=== PATIENT | female | born 1965 | race Caucasian/White ===

== ENCOUNTER → 2017-09-17 | Day surgery (SDC) | payer BC ==
[~2017-09-17] MED LIST: ADVIL PO; AMITIZA24 MCG PO; APIDRA100 UNIT/2 SQ; ARTHROTEC EC 71 EACH; ARTHROTEC EC 71 EACH PO; BELBUCA PO; BENTYL10 MG PO; BUPROPION HCL100 MG PO; CALCIUM PO; CARAFATE1 GM/10 ML PO; CEFDINIR250 MG/5 M PO; CITRACAL + D M1 EACH PO; COD LIVER OIL1 EAC1 PO; CYCLOBENZAPRINE5 MG PO; DEXILANT60 MG PO; DEXTROSE 5% 250ML 250 ML IV ONE; DEXTROSE 5%/LACTATED RINGERS 1,000 ML IV ONE; DILAUDID4 MG PO; EVAMIST8.1 ML TD; EVAMIST8.1 ML TOP; FENTANYL CITRATE/PF 100MCG/2 ML INJ ONE; FLAGYL250 MG PO; FLEXERIL10 MG PO; FLUCONAZOLE100 MG PO; HUMALOG100 UNIT/1 SC; HUMALOG100 UNIT/4 SQ; HYOSCYAMINE0.375 M2 PO; HYOSCYAMINE0.375 MG PO; IMURAN50 MG PO; KEFLEX500 MG PO; KETOROLAC TROME10 MG PO; LANTUS 3ML100 UNITS/ SC; LANTUS100 UNITS/ SQ; LEVAQUIN500 MG PO; LEVOTHYROXINE150 MCG PO; LEXAPRO10 MG PO; LIBRAX CAPSULE1 EACH PO; LIDOCAINE HCL 2% LOCAL INJ 5 ML SDV VIAL INJ ONE; LINZESS PO; MACROBID 100 M100 MG PO; MAGNESIUM PO; MAGNESIUM400 MG PO; MAXZIDE 37.5 M1 EACH; MICARDIS40 MG PO; MIDAZOLAM HCL 2 MG/2 ML VIAL ONE; MULTIVITAMIN PO; NORCO 10-325 T1 EACH; NORCO 5-325 TA1 EACH PO; NORCO 7.5-3251 EACH PO; PANTOPRAZOLE SO40 MG PO; POTASSIUM20 MEQ/100 PO; PRANDIN1 MG PO; PREDNISONE1 MG PO; PROMETHAZINE HC25 M1 PO; PROPOFOL IV EMULSION 10 MG/ML 50 ML VIAL ONE; PROTONIX IV40 MG PO; REGLAN10 MG PO; SULFASALAZINE500 MG PO; TRAMADOL 100 MG; TRIAMTERENE-HCTZ1 EA PO; TYLENOL; TYLENOL EXTRA500 MG PO; TYLENOL PO; ULTRAM50 MG PO; VITAMIN D35000 UNI1 PO; VITAMIN D35000 UNIT PO; Z.0.GLIPIZIDE10 MG PO; Z.0.LANTUS100 UNIT/1 SQ; Z.0.METOCLOPRAMIDE10 PO; Z.0.MICARDIS80 MG PO; Z.0.PANTOPRAZOLE SO4 PO; Z.1.LEVOTHYROXINE100 PO; ZOFRAN ODT4 MG PO; ZYRTEC10 MG PO; [UNRECOGNIZED DRUG - OTHER] PO; [UNRECOGNIZED DRUG - OTHER] TD; norco; phenergan PO
--- OUTSIDE RECORDS SUMMARY | 2017-09-17 12:43 | XMS REPORT ---
Author Author [facility] Address Unknown Phone Unavailable Care Team Providers Care Telecommunications Engineer Name Role Phone VIRYROBELKARIME Unavailable Unavailable Problems This patient has no known problems. Allergies, Adverse Reactions, Alerts This patient has no known allergies or adverse reactions. Medications This patient has no known medications. Results Test Description Test Time Test Comments Text Results Atomic Results Result Comments POCT-GLUCOSE METER 2016-08-06 12:30:00 POC-GLUCOSE METER (BEAKER) (test bwoy=[id number]) 168 mg/dL 70-110 TESTED AT [facility] [address] [place] [id number]
--- OUTSIDE RECORDS SUMMARY | 2017-09-17 12:43 | XMS REPORT | Clinical Summary ---
Author Author [facility] Address Unknown Phone Unavailable Care Team Providers Care Automotive [employer] Counter Person Name Role Phone PCP Unavailable Allergies Active Allergy Reactions Severity Noted Date Comments Ciprofloxacin Hives 11/27/2013 Not sure if this is a true allergy. States they think it was because her liver was "not working properly", pt states that she tolerate levoquin fine without any reactions Codeine Hives 11/27/2013 Hydrocodone-Acetaminophen Itching 08/05/2016 Current Medications Prescription Sig. Disp. Refills Start End Date Status Date levothyroxine (SYNTHROID, Take 150 mcg by mouth Active LEVOTHROID) 150 MCG daily. tablet telmisartan (MICARDIS) 40 Take 80 mg by mouth daily Active MG tablet . insulin glargine (LANTUS) Inject 80 Units Active 100 unit/mL injection subcutaneously every morning. Use as directed insulin glargine (LANTUS) Inject 40 Units Active 100 unit/mL injection subcutaneously nightly. Use as directed estradiol (EVAMIST) 1.53 Place 1 spray onto the Active mg/spray (1.7%) skin daily. transdermal spray pantoprazole (PROTONIX) Take 40 mg by mouth 2 Active 40 MG tablet (two) times daily. metoclopramide HCl Take 10 mg by mouth 3 Active (REGLAN) 10 MG tablet (three) times daily. hyoscyamine sulfate Take 0.375 mg by mouth 2 Active (LEVSINEX) 0.375 mg 12 hr (two) times daily as capsule needed for Cramping. HYDROcodone-acetaminophen Take 1 tablet by mouth Active (NORCO 5-325) 5-325 mg every 4 (four) hours as per tablet needed for Pain. cyclobenzaprine Take 10 mg by mouth 3 Active (FLEXERIL) 10 MG tablet (three) times daily as needed for Muscle spasms. traMADol (ULTRAM) 50 mg Take 50 mg by mouth every Active tablet 6 (six) hours as needed for Pain. clidinium-chlordiazepoxid Take 1 capsule by mouth 4 Active e (LIBRAX, WITH (four) times daily as CLIDINIUM,) 5-2.5 mg per needed. capsule buprenorphine HCl Place 75 mcg inside cheek Active (BELBUCA) 75 mcg Film 2 (two) times daily. insulin lispro (HUMALOG) Inject subcutaneously 3 Active 100 unit/mL InPn (three) times daily with meals. diclofenac-misoprostol Take 1 tablet by mouth 2 Active (ARTHROTEC 75) 75-200 (two) times daily. mg-mcg per tablet promethazine (PHENERGAN) Take 25 mg by mouth every Active 25 MG tablet 6 (six) hours as needed for Nausea. ondansetron (ZOFRAN) 8 MG Take by mouth every 8 Active tablet (eight) hours as needed for Nausea. Active Problems No known active problems Social History Tobacco Use Types Packs/Day Years Used Date Never Smoker Smokeless Tobacco: Never Used Alcohol Use Drinks/Week oz/Week Comments No Sex Assigned at Date Recorded Not on file Last Filed Vital Signs Not on file Plan of Treatment Health Maintenance Due Date Last Done Comments INFLUENZA VACCINE 03/14/2017 Results * REPORT OF PROCEDURE - ENDOSCOPY URL (12/03/2016 9:42 AM) after 09/16/2016
--- OUTSIDE RECORDS SUMMARY | 2017-09-17 12:43 | XMS REPORT | Clinical Summary ---
Author Author [facility] Address Unknown Phone Unavailable Care Team Providers Care Patient Resource Coordinator Name Role Phone Sean Newman MD PCP Allergies Active Allergy Reactions Severity Noted Date Comments Ciprofloxacin Hives 12/17/2015 Codeine Hives 12/17/2015 Current Medications Prescription Sig. Disp. Refills Start End Date Status Date cyclobenzaprine Take 10 mg by mouth 2 11/29/19 Active (FLEXERIL) 10 MG tablet daily. 16 LANTUS 100 unit/mL Inject 40 Units under the 5 11/22/19 Active injection skin nightly. Takes 80U 16 in am HUMALOG KWIKPEN 100 Inject 20 Units under the 5 12/13/19 Active unit/mL insulin pen skin 3 (three) times a 16 day before meals. 20-40U levothyroxine (SYNTHROID, Take 150 mcg by mouth 0 09/11/19 Active LEVOTHROID) 150 MCG daily. 16 tablet LINZESS 145 mcg capsule Take 145 mcg by mouth 2 12/02/19 Active daily. 16 traMADol (ULTRAM) 50 mg Take 50 mg by mouth every 0 10/10/19 Active tablet 6 (six) hours as needed. 16 Take 1 to 2 tablets every 6 hours as needed pantoprazole (PROTONIX) Take 40 mg by mouth 2 0 11/22/19 Active 40 MG EC tablet (two) times a day. 16 telmisartan (MICARDIS) 40 Take 80 mg by mouth 0 11/22/19 Active MG tablet daily. 16 chlordiazepoxide-clidiniu Take 1 capsule by mouth 2 12/02/19 Active m (LIBRAX) 5-2.5 mg per nightly. 16 capsule estradiol (EVAMIST) 1.53 Place 2 sprays on the Active mg/spray (1.7%) skin daily. transdermal spray hyoscyamine (LEVBID) Take 0.375 mg by mouth Active 0.375 mg 12 hr tablet every 12 (twelve) hours as needed for cramping. cholecalciferol, vitamin Take 1 capsule by mouth Active D3, (VITAMIN D3) 5,000 daily. unit tablet calcium carbonate-vitamin Take 1 tablet by mouth Active D3 (CALCIUM 500 + D, D3,) daily. 500 mg(1,250mg) -125 unit per tablet magnesium oxide (MAG-OX) Take 400 mg by mouth 3 Active 400 mg tablet (three) times a day. ursodiol (ACTIGALL) 500 Take 250 mg by mouth 2 Active MG tablet (two) times a day. metroNIDAZOLE (FLAGYL) 0 04/14/20 Active 500 MG tablet 16 levofloxacin (LEVAQUIN) 0 04/15/20 Active 500 MG tablet 16 Active Problems Problem Noted Date Biliary stricture 04/22/2016 Last Assessment & Plan: She has undergone multiple ERCP's, one complicated by perforation. She refers to recurrent biliary stricture, but none noted on most recent MRCP. No jaundice. I do not suspect her pain is related to any biliary process. Further, she has undergone sphincterotomy and sphincteroplasty, with complication. As such, I feel further biliary endotherapy would not be warranted unless jaundice secondary to biliary obstruction were to develop PSC (primary sclerosing cholangitis) 04/14/2016 Nonalcoholic steatohepatitis 04/14/2016 Fatty liver 12/18/2015 Type II or unspecified type diabetes mellitus without mention of 12/18/2015 complication, uncontrolled Hypothyroidism, adult 12/18/2015 Essential hypertension, benign 12/18/2015 Obesity 12/18/2015 Celiac disease 12/18/2015 Abdominal pain 12/17/2015 Last Assessment & Plan: Etiology of the pain is not clear. Imaging without acute findings. She has long standnig pain, that I suspect is functional in etiology. She has undergone stricturoplasty for unclear reasons. I suspect she main need pain management for her chronic pain issues. Encounters Date Type Specialty Care Team Description 11/27/2016 Hospital Radiology Baljinder Pan MD Right upper quadrant Encounter pain; Constipation, unspecified constipation type 11/25/2016 Procedure Pass Radiology 11/25/2016 Transcribe Access Baljinder Pan MD Right upper quadrant pain Orders (Primary Dx); Constipation, unspecified constipation type after 09/16/2016 Family History Medical History Relation Name Comments Diabetes Brother Hypertension Brother No Known Problems Father Diabetes Mother Hypertension Mother Relation Name Status Comments Brother Father Mother Social History Tobacco Use Types Packs/Day Years Used Date Never Smoker Alcohol Use Drinks/Week oz/Week Comments No Sex Assigned at Date Recorded Not on file Last Filed Vital Signs Not on file Plan of Treatment Health Maintenance Due Date Last Done Comments FOOT EXAM 11/21/1975 OPHTHALMOLOGY EXAM 11/21/1975 URINE MICROALBUMIN 11/21/1975 PAP SMEAR 1986 COLONOSCOPY 11/21/2015 MAMMOGRAM 11/21/2015 INFLUENZA VACCINE 01/12/2018 Results * MRI CHOLANGIOGRAM W WO CONTRAST (11/27/2016 1:43 PM) Specimen Performing Laboratory [facility] [address] [place] [address] Narrative EXAMINATION:MRI CHOLANGIOGRAM W WO CONTRAST CLINICAL HISTORY:R10.11 Right upper quadrant pain, K59.00 Constipation unspecified, RUQ PAIN TECHNIQUE: Multisequence multiplanar MR imaging of the abdomen was performed before and then following the intravenous administration of gadolinium contrast. In addition, 3-D hydropic MRCP was performed with multiplanar MIP reconstructions. COMPARISON:04/02/2016 FINDINGS: LIVER:Advanced hepatic steatosis is present without mass. No suspicious enhancement of the liver. BILIARY:Stable changes are present status post cholecystectomy. Pneumobilia is present with gas well seen in the common hepatic, central left hepatic and proximal common bile ducts. Common bile duct measures 7 mm similar to 10/21/[address] No abnormal enhancement of the biliary tree is identified. SPLEEN:Normal in size without mass. PANCREAS:No mass or ductal dilatation. ADRENALS:Normal KIDNEYS:Normal.Symmetric renal enhancement BOWEL:Normal. VASCULAR:Normal enhancement of the aorta, branch vessels, IVC and portal veins. LYMPH NODES:No pathological adenopathy. OTHER:No ascites. Regional osseous structures are unremarkable. The heart is not enlarged. Lung bases are clear. IMPRESSION: Advanced hepatic steatosis. Status post cholecystectomy with stable pneumobilia probably related to prior sphincterotomy. No developing biliary dilatation or susicious biliary enhancement. Thank you for allowing us to participate in the care of your patient. [facility]-[id number] Procedure Note Hm Interface, Radiology Results Incoming - 11/27/2016 2:31 PM CDT EXAMINATION: MRI CHOLANGIOGRAM W WO CONTRAST CLINICAL HISTORY: R10.11 Right upper quadrant pain, K59.00 Constipation unspecified, RUQ PAIN TECHNIQUE: Multisequence multiplanar MR imaging of the abdomen was performed before and then following the intravenous administration of gadolinium contrast. In addition, 3-D hydropic MRCP was performed with multiplanar MIP reconstructions. COMPARISON: 04/02/2016 FINDINGS: LIVER: Advanced hepatic steatosis is present without mass. No suspicious enhancement of the liver. BILIARY: Stable changes are present status post cholecystectomy. Pneumobilia is present with gas well seen in the common hepatic, central left hepatic and proximal common bile ducts. Common bile duct measures 7 mm similar to 10/21/[address] No abnormal enhancement of the biliary tree is identified. SPLEEN: Normal in size without mass. PANCREAS: No mass or ductal dilatation. ADRENALS: Normal KIDNEYS: Normal. Symmetric renal enhancement BOWEL: Normal. VASCULAR: Normal enhancement of the aorta, branch vessels, IVC and portal veins. LYMPH NODES: No pathological adenopathy. OTHER: No ascites. Regional osseous structures are unremarkable. The heart is not enlarged. Lung bases are clear. IMPRESSION: Advanced hepatic steatosis. Status post cholecystectomy with stable pneumobilia probably related to prior sphincterotomy. No developing biliary dilatation or susicious biliary enhancement. Thank you for allowing us to participate in the care of your patient. [facility]-[id number] after 09/16/2016 Insurance Payer Benefit Subscriber ID Type Phone Address Plan / Group BCBS BCBS xxxxxxxxxxxx PPO CHOICE PPO/[facility] PPO [address] [place] [phone]
--- NOTE | 2017-09-17 18:24 | Operative Report ---
DATE OF PROCEDURE: September 17, 2017 REFERRING PHYSICIAN: Dr. Ernesto Muñoz PROCEDURE PERFORMED: Esophagogastroduodenoscopy with biopsy. INDICATIONS FOR EGD: Right upper quadrant pain, thickened antrum on computerized tomography scan. MEDICATION: Patient was done under MAC. Please see anesthesiologist's note. PROCEDURE: With the patient in the left lateral decubitus position, the flexible fiberoptic Olympus gastroscope was introduced into the esophagus under direct visualization without any difficulty. There was some patchy erythema noted in the distal esophagus. The scope was then advanced with ease into the stomach. Mucosa overlying the antrum and the body revealed some diffuse erythema and mild to moderate edema, and biopsies were obtained and sent to stain for H. pylori. The pylorus was of normal contour and shape. It was intubated with ease. The scope was advanced all the way to the 2nd portion of the duodenum. The scope was then withdrawn slowly. Mucosa overlying the proximal 2nd portion, as well as that of the duodenal bulb appeared to be within normal limits. The scope was then withdrawn back into the stomach and retroflexed. The mucosa overlying the fundus and the cardia appeared to be within normal limits. The scope was then straightened out. The stomach was decompressed. The scope was subsequently withdrawn. Patient tolerated the procedure well. IMPRESSION 1. Distal esophagitis. 2. Gastritis, biopsied. Biopsies sent to stain for Helicobacter pylori. PLAN: Follow up histology. Continue Protonix 40 mg 1 p.o. a.c. b.i.d. Add Carafate 1 g p.o. a.c. t.i.d. and at bedtime. Job#: [id number] RI cc:ERNESTO MUÑOZ DO
== END | disposition home or self-care (01) ==
LOC: OR 12:41
PROVIDERS: ATTEND Internal Medicine Gastroenterology
DX: K29.50 Unspecified chronic gastritis without bleeding (principal); K20.9 Esophagitis, unspecified; K31.89 Other diseases of stomach and duodenum; F32.9 Major depressive disorder, single episode, unspecified; F41.9 Anxiety disorder, unspecified; E11.9 Type 2 diabetes mellitus without complications; K75.81 Nonalcoholic steatohepatitis (NASH); I10 Essential (primary) hypertension; Z88.5 Allergy status to narcotic agent; Z88.1 Allergy status to other antibiotic agents; Z01.810 Encounter for preprocedural cardiovascular examination; Z79.4 Long term (current) use of insulin; Z68.41 Body mass index [BMI] 40.0-44.9, adult; Z80.0 Family history of malignant neoplasm of digestive organs
CPT/HCPCS: 36415; 43239; 82948; 93005; J2001; J2250; J7120

== ENCOUNTER → 2017-12-02 | Outpatient (CLI) | payer BC ==
[~2017-12-02] MED LIST changes: -DEXTROSE 5% 250ML 250 ML IV ONE; -DEXTROSE 5%/LACTATED RINGERS 1,000 ML IV ONE; -FENTANYL CITRATE/PF 100MCG/2 ML INJ ONE; -LIDOCAINE HCL 2% LOCAL INJ 5 ML SDV VIAL INJ ONE; +LIDOCAINE VISC 2% SOLN 15 ML UDC ONE; -MIDAZOLAM HCL 2 MG/2 ML VIAL ONE; -PROPOFOL IV EMULSION 10 MG/ML 50 ML VIAL ONE
== END ==
LOC: WCC 08:07
PROVIDERS: ATTEND Family Medicine Adult Medicine
DX: E11.65 Type 2 diabetes mellitus with hyperglycemia (principal); L84 Corns and callosities; I10 Essential (primary) hypertension; E03.8 Other specified hypothyroidism; E66.01 Morbid (severe) obesity due to excess calories; K76.9 Liver disease, unspecified
CPT/HCPCS: 36415; 82948

== ENCOUNTER 2018-03-20 11:29 | Emergency (ER) | payer BC ==
[~2018-03-20] VITALS: Ht 162.6 cm; Wt 113.4 kg
[~2018-03-20 11:29] MED LIST changes: -LIDOCAINE VISC 2% SOLN 15 ML UDC ONE
[2018-03-20] MEDS ORDERED: SODIUM CHLORIDE 0.9% 1000ML 1,000 ML IV SCH (13:00)
[2018-03-20] MEDS ORDERED: PROMETHAZINE 12.5MG/ NACL 0.9% 12.5 MG/50 ML BAG IV ONE (13:00)
--- NOTE | 2018-03-20 15:16 | Diagnostic Imaging Report ---
EXAM: CT Abdomen and Pelvis WITH contrast COMPARISON: CT Abdomen/Pelvis with contrast 10/03/2015. TECHNIQUE: Abdomen and pelvis were scanned utilizing a multidetector helical scanner from the lung base to the pubic symphysis after administration of IV contrast. Coronal and sagittal reformations were obtained. Routine protocol was performed. Scan was performed when during portal venous phase. IV CONTRAST: 100 cc of Isovue 370 ORAL CONTRAST: Gastrografin and water. COMPLICATIONS: None RADIATION DOSE: Total DLP: 877 mGy*cm Estimated effective dose: (DLP x 0.015 x size factor) mSv CTDIvol has been reviewed. It is below the limits set by the Radiation Protocol Committee (RPC). FINDINGS: LINES and TUBES: None. LOWER THORAX: Unremarkable HEPATOBILIARY: No evidence of focal lesion. No biliary ductal dilation. Stable pneumobilia. GALLBLADDER: Surgically absent. SPLEEN: No splenomegaly. PANCREAS: No focal masses or ductal dilatation. ADRENALS: No adrenal nodules KIDNEYS/URETERS: Kidneys enhance symmetrically. No evidence of hydronephrosis, solid mass, or stone. GI TRACT: No evidence of wall thickening or distension. The appendix is not well seen, however there are no secondary signs of appendicitis. PELVIC ORGANS/BLADDER: Status post hysterectomy. LYMPH NODES: No lymphadenopathy. VESSELS: There is mild atherosclerotic disease in the aorta and major arterial branches. PERITONEUM / RETROPERITONEUM: No free air or fluid. BONES AND SOFT TISSUES: Unremarkable. CONCLUSION: No acute abnormality in the abdomen or pelvis. Signed by: Dr. Jason Garza MD on 03/20/2018 3:12 PM
[2018-03-28] MEDS ORDERED: Insulin Detemir SQ (08:54)
[2018-03-28] MEDS ORDERED: LIBRAX CAPSULE1 EACH PO (08:54)
--- OUTSIDE RECORDS SUMMARY | 2018-03-29 11:25 | XMS REPORT | Clinical Summary ---
Author Author [facility] Address Unknown Phone Unavailable Care Team Providers Care Leather Stretcher Name Role Phone Jovan Newman MD PCP Allergies Active Allergy Reactions [...] pain management for her chronic pain issues. Family History Medical History Relation Name Comments [...] Health Maintenance Due Date Last Done Comments DIABETIC FOOT EXAM 11/21/1975 DIABETIC RETINAL EYE EXAM 11/21/1975 URINE MICROALBUMIN 11/21/1975 CERVICAL CANCER SCREENING 1986 BREAST CANCER SCREENING 11/21/2015 COLON CANCER SCREENING 11/21/2015 SHINGRIX VACCINE (#1) 11/21/2015 INFLUENZA VACCINE 01/12/2018 Results Not on fileafter 03/19/2017 Insurance Payer Benefit Subscriber ID Type Phone Address Plan / Group BCBS BCBS xxxxxxxxxxxx PPO CHOICE PPO/[employer] [place] [address]
--- OUTSIDE RECORDS SUMMARY | 2018-03-29 11:25 | XMS REPORT | Clinical Summary ---
Author Author [facility] Address Unknown Phone Unavailable Care Team Providers Care Spoilage Worker Name Role Phone PCP Unavailable Allergies Active [...] Due Date Last Done Comments INFLUENZA VACCINE 03/14/2018 Results Not on fileafter 03/19/2017
--- OUTSIDE RECORDS SUMMARY | 2018-03-29 11:25 | XMS REPORT | Continuity of Care Document ---
Author Author [facility] Interface Address Unknown Phone Unavailable Problems Problem Status Onset Date Classification Date Reported Comments Source Medications Medication Details Route Status Patient Instructions Ordering Provider Order Date Source Allergies, Adverse Reactions, Alerts Substance Category Reaction Severity Reaction type Status Date Reported Comments Source Immunizations Immunization Date Given Site Status Last Updated Comments Source Results Order Name Results Value Reference Range Date Interpretation Comments Source Vital Signs Vital Sign Value Date Comments Source Encounters Location Location Details Encounter Type Encounter Number Reason For Visit Attending Provider ADM Date DC Date Status Source Outpatient [id number] JUNIOR SAHU 02/13/2016 Active [facility] Procedures Procedure Code Date Perfomer Comments Source
== END 2018-03-20 15:34 | disposition home or self-care (01) ==
LOC: FSED 11:29
DX: R10.11 Right upper quadrant pain (principal); R10.12 Left upper quadrant pain; K59.00 Constipation, unspecified; I10 Essential (primary) hypertension; E11.9 Type 2 diabetes mellitus without complications; K50.90 Crohn's disease, unspecified, without complications; E03.9 Hypothyroidism, unspecified
CPT/HCPCS: 74177; 80048; 80076; 81003; 85025; 99284; J2550; J7030

== ENCOUNTER 2018-03-24 15:01 | Inpatient (IN) | payer BC ==
[2018-03-24 15:58] VITALS: BP 131/56
[2018-03-24 16:56] VITALS: BP 131/56
[2018-03-24] MEDS: HYDROMORPHONE 2MG/ML 2 MG/ML ML IV PRN ×2 (17:20→22:38)
[2018-03-24 17:42] LABS: BASOPHILS % 0.1 % (0.0-1.0); EOSINOPHILS % 0.3 % (0.0-6.0); HEMATOCRIT 32.4 % (34.2-44.1); HEMOGLOBIN 11.4 g/dL (12.0-16.0); LYMPHOCYTES # (AUTO) 2.1 (1.0-3.2); LYMPHOCYTES % 26.8 % (18.0-39.1); MEAN CORPUSCULAR HEMOGLOBIN 32.6 pg (28-32); MEAN CORPUSCULAR HGB CONC 35.2 g/dL (31-35); MEAN CORPUSCULAR VOLUME 92.6 fL (81-99); MONOCYTES # (AUTO) 0.4 (0.2-0.8); MONOCYTES % 4.9 % (4.4-11.3); NEUTROPHILS # (AUTO) 5.3 (2.1-6.9); NEUTROPHILS % 67.6 % (38.7-80.0); PLATELET COUNT 265 x10e3/uL (140-360); RED CELL DISTRIBUTION WIDTH 12.5 % (11.7-14.4)
[2018-03-24] MEDS: SODIUM CHLORIDE 0.9% 1000ML 1,000 ML IV SCH (17:44)
[2018-03-24] MEDS: METRONIDAZOLE 500MG/NS 100ML 100 ML IV SCH (17:44)
[2018-03-24 18:20] LABS: ALANINE AMINOTRANSFERASE 26 IU/L (0-55); ALBUMIN 3.4 g/dL (3.5-5.0); ALKALINE PHOSPHATASE 89 IU/L (40-150); ANION GAP 13.4 mmol/L (8-16); BLOOD UREA NITROGEN 9 mg/dL (7-26); BUN/CREATININE RATIO 11 (6-25); CALCIUM 8.7 mg/dL (8.4-10.2); CARBON DIOXIDE 23 mmol/L (22-29); CHLORIDE 99 mmol/L (98-107); CREATININE, SERUM 0.82 mg/dL (0.57-1.11); EST GLOMERULAR FILTRATION RATE > 60 ML/MIN (60-); GLUCOSE 66 mg/dL (74-118); LIPASE 8 U/L (8-78); POTASSIUM 3.4 mmol/L (3.5-5.1); SODIUM 132 mmol/L (136-145)
[2018-03-24] MEDS ORDERED: IMURAN50 MG PO (19:28)
[2018-03-24] MEDS: LEVOFLOXACIN 750MG/D5W 150ML 150 ML IV SCH (19:30)
[2018-03-24] MEDS: ONDANSETRON HCL INJ 2 MG/ML VIAL IV PRN (19:36)
--- NOTE | 2018-03-24 19:40 | Diagnostic Imaging Report ---
Exam: Abdominal film Clinical History: Intractable nausea and vomiting Comparison: None. DISCUSSION: Frontal view of the abdomen shows a nonobstructive bowel gas pattern with mild amount of retained stool. No dilated, air-filled loops of bowel. No abnormal calcifications. No acute bone abnormality. IMPRESSION: 1. Nonobstructive bowel gas pattern. Signed by: Dr. Tian Peña M.D. on 03/24/2018 7:36 PM
[2018-03-24 20:00] VITALS: BP 131/61
[2018-03-25 00:10] VITALS: BP 148/72
[2018-03-25] MEDS: METRONIDAZOLE 500MG/NS 100ML 100 ML IV SCH ×3 (01:00→17:41)
[2018-03-25] MEDS ORDERED: PANTOPRAZOLE 40 MG 10ML VIAL IV STA (01:06)
[2018-03-25] MEDS: PANTOPRAZOLE INJ 40 MG in SODIUM CHLORIDE 0.9% 50ML 50 ML IV SCH ×5 (02:00→22:04)
[2018-03-25] MEDS: PROMETHAZINE 25MG/ NS 50ML (IV) IV PRN ×3 (02:30→23:55)
[2018-03-25 04:20] VITALS: BP 134/65
[2018-03-25 05:57] LABS: BILIRUBIN,URINE NEGATIVE (NEGATIVE); CLARITY,URINE CLEAR (CLEAR); COLOR,URINE YELLOW (YELLOW); EPITHELIAL CELLS,URINE FEW /LPF; KETONES,URINE NEGATIVE (NEGATIVE); LEUKOCYTE ESTERASE ,URINE NEGATIVE (NEGATIVE); NITRITE,URINE NEGATIVE (NEGATIVE); PROTEIN,URINE DIPSTICK NEGATIVE (NEGATIVE); URINE UROBILINOGEN 0.2 mg/dL (0.2 - 1)
[2018-03-25 08:00] VITALS: BP 108/56
[2018-03-25] MEDS: HYDROMORPHONE 2MG/ML 2 MG/ML ML IV PRN ×2 (11:45→23:55)
[2018-03-25 12:00] VITALS: BP 135/63
[2018-03-25] MEDS ORDERED: INDOMETHACIN 50 MG SUPP.RECT RC ONE (14:03)
[2018-03-25] MEDS ORDERED: IOPAMIDOL 610MG/1ML 300 MG/ML VIAL IV ONE (14:03)
[2018-03-25] MEDS ORDERED: GLUCAGON FOR INJ 1 MG VIAL ONE ×2 (14:36)
[2018-03-25] MEDS ORDERED: HYOSCYAMINE SULFATE 0.5 MG/ML INJ ONE (14:37)
[2018-03-25] MEDS ORDERED: MORPHINE SULFATE 2 MG/ML SYR ONE ×2 (15:32→15:44)
[2018-03-25 16:00] VITALS: BP 163/73
--- NOTE | 2018-03-25 17:36 | History and Physical ---
PRIMARY CARE PHYSICIAN: Dr. Mendez Doan. CHIEF COMPLAINT: Right-sided abdominal pain and fever. HISTORY OF PRESENT ILLNESS: This is a 52-year-old woman with a history of significant biliary disease, who had a scheduled ERCP with Dr. Mahmood for today electively. Patient came to the clinic yesterday with severe pain in the right abdomen with fever. I did a direct admission to the hospital and started her on IV antibiotics and fluids. Dr. Mahmood notified and plans for ERCP today. Patient underwent sphincteroplasty and is recovering. Pain is somewhat controlled. Fevers have improved. She denies any nausea, vomiting. Denies any leg pain, back pain. PAST MEDICAL HISTORY: Celiac disease, stage 4 fatty liver, diabetes mellitus type 2, hypertension, interstitial cystitis and cocktail with steroids, chronic James-Smart virus, Crohn's disease, severe pancreatitis due to sphincterotomy, peripheral edema, obesity, right parotid gland infections, common bile duct stricture, recurring cholangitis, fibromyalgia. She is status post common bile duct exploration with sphincteroplasty of the sphincter body. Gastroparesis, chronic constipation, hypertensive heart disease, diabetic peripheral neuropathy, nonalcoholic steatohepatitis, hypothyroidism, chronic fatigue syndrome. PAST SURGICAL HISTORY: Common bile duct exploration with sphincteroplasty of the sphincter body in March 2014. Tonsillectomy, adenoidectomy, sinus surgery, carpal tunnel release surgery, multiple ERCPs with common bile duct stent placement status post removal, liver biopsy, temporal artery biopsy, thyroidectomy, cholecystectomy. ALLERGIES: PER THE ELECTRONIC MEDICAL RECORDS. FAMILY HISTORY/SOCIAL HISTORY: Patient is . She has children. She lives with her . No alcohol, illicits or cigarettes. MEDICATIONS: Per the electronic medical records. Medications reviewed. REVIEW OF SYSTEMS: Denies any dizziness, chest pain. Denies any headache, back pain, vision changes. Denies any shortness of breath. VITAL SIGNS: Have been reviewed. Temperature as high as 100.4. PHYSICAL EXAMINATION GENERAL APPEARANCE: A tired-appearing woman resting in bed. HEENT: Anicteric. Pupils responsive to light. No oral lesions. CARDIOVASCULAR: Normal S1/S2. LUNGS: Moderate breath sounds. ABDOMEN: Soft, nondistended. She has tenderness in the right upper quadrant and has voluntary guarding. EXTREMITIES: No edema or calf tenderness. NEUROLOGICALLY: Alert and oriented x3. She moves all extremities. SKIN: Dry. PSYCHIATRIC: Flat affect. LABS: Reviewed. ASSESSMENT: This is a 52-year-old woman. 1. Recurrent cholangitis. 2. Biliary disease. 3. Fever. 4. Hypokalemia. 5. She is status post sphincteroplasty. 6. Diabetes mellitus. 7. Crohn's disease. 8. Celiac disease. 9. Chronic James-Smart virus infection. 10. Gastroesophageal reflux disease. 11. Fibromyalgia. 12. Hypothyroidism. PLAN 1. She is status post ERCP with sphincteroplasty. 2. Continue broad-spectrum antibiotics with cefepime and vancomycin and follow up cultures. 3. Follow up electrolytes and counts. 4. Control pain. 5. SCDs for DVT prophylaxis. 6. IV PPI. 7. Follow up labs in the morning. Job#: [id number] EV
--- NOTE | 2018-03-25 17:50 | Diagnostic Imaging Report ---
ADDENDUM #1 Addendum: ERCP performed 03/25/2018, MRI/MRCP performed 03/26/[address] abdomen and pelvis performed 03/20/2018 were reviewed. ERCP images show paucity of intrahepatic bile ducts. Some of the more central intrahepatic bile ducts show apparent mild irregularity, although no discrete "beading" (alternating strictures with dilation) are identified. No biliary ductal dilation is noted. Apparent intraluminal filling defect in the proximal aspect of the left hepatic bile duct corresponds to pneumobilia, noted on both CT and MRI. No filling defects to suggest stones are identified. T2-weighted MRI images show mild periportal hyperintensity in the central aspect of left and right lobes (for example series 6, image 15 and series 7, images 27 and 23). No periportal halo sign, or lymphadenopathy. Although no lymphadenopathy is seen, primarily biliary cirrhosis could be a diagnostic consideration if this patient has a cholestatic biochemical pattern persisting for more than 6 months. Serum AMA titers would be helpful for further evaluation. Signed by: Dr. Vinay Jiménez M.D. on 03/29/2018 5:50 PM ORIGINAL REPORT ERCP- Interpretation of Fluoroscopic Images TECHNIQUE: Several fluoroscopic images from ERCP performed on the same day were submitted for review. COMPARISON: None DISCUSSION: Fluoroscopic images demonstrate that the common duct and right hepatic duct are cannulated and subsequently opacified with contrast. No evidence of filling defect or dilatation of the common duct or right hepatic ducts. The intrahepatic ducts bilaterally appear unremarkable. The left main hepatic duct however has an irregular appearance with apparent beading proximal and distal to an area of relative narrowing which is not opacified with contrast and may represent a filling defect. The left hepatic duct is not cannulated on this study. The patient is status post cholecystectomy. IMPRESSION: Apparent beading and irregularity in the left hepatic duct with possible filling defect. Findings may represent inflammatory process. Filling defect may represent stone, although malignancy is not excluded on this study. Correlation with outside imaging and/or ERCP suggested. Findings discussed with Dr. Mahmood on 03/25/2018 at 1630, patient reportedly had an outside hospital MRCP recently, referring team will attempt to obtain and upload into our system. Signed by: Dr. Jason Garza MD on 03/25/2018 5:47 PM
[2018-03-25] MEDS: SODIUM CHLORIDE 0.9% 1000ML 1,000 ML IV SCH (18:00)
[2018-03-25] MEDS: LEVOFLOXACIN 750MG/D5W 150ML 150 ML IV SCH (18:41)
[2018-03-25] MEDS ORDERED: MIDAZOLAM HCL 2 MG/2 ML VIAL ONE (19:28)
[2018-03-25] MEDS ORDERED: FENTANYL CITRATE/PF 100MCG/2 ML INJ ONE (19:28)
[2018-03-25] MEDS ORDERED: LIDOCAINE HCL 2% LOCAL INJ 5 ML SDV VIAL INJ ONE (20:09)
[2018-03-25] MEDS ORDERED: PROPOFOL IV EMULSION 10 MG/ML 20 ML VIAL ONE (20:09)
[2018-03-25] MEDS ORDERED: SEVOFLURANE INHAL SOLN 250 ML PEN BTL ONE (20:09)
[2018-03-25] MEDS ORDERED: ONDANSETRON HCL INJ 2 MG/ML VIAL ONE (20:09)
[2018-03-25] MEDS ORDERED: SUCCINYLCHOLINE 200 MG/10 ML SYR ONE (20:09)
[2018-03-25] MEDS ORDERED: ROCURONIUM BROMIDE 10 MG/ML 5ML VIAL ONE (20:09)
[2018-03-25] MEDS ORDERED: DEXAMETHASONE SOD PHOS INJ 4 MG/ML VIAL ONE (20:09)
[2018-03-25 20:38] VITALS: BP 133/64
[2018-03-26] VITALS (9 sets, daily range): BP systolic 115–142; BP diastolic 53–71
[2018-03-26] MEDS: METRONIDAZOLE 500MG/NS 100ML 100 ML IV SCH ×3 (02:02→17:15)
[2018-03-26] MEDS: ONDANSETRON HCL INJ 2 MG/ML VIAL IV PRN (02:02)
[2018-03-26 05:17] LABS: HEMATOCRIT 33.9 % (34.2-44.1); HEMOGLOBIN 11.9 g/dL (12.0-16.0); LYMPHOCYTES # (AUTO) 0.4 (1.0-3.2); LYMPHOCYTES % 4.7 % (18.0-39.1); MEAN CORPUSCULAR HEMOGLOBIN 32.2 pg (28-32); MEAN CORPUSCULAR HGB CONC 35.1 g/dL (31-35); MEAN CORPUSCULAR VOLUME 91.6 fL (81-99); MONOCYTES # (AUTO) 0.1 (0.2-0.8); MONOCYTES % 1.9 % (4.4-11.3); NEUTROPHILS # (AUTO) 6.9 (2.1-6.9); PLATELET COUNT 186 x10e3/uL (140-360); RED CELL DISTRIBUTION WIDTH 12.2 % (11.7-14.4)
[2018-03-26 05:43] LABS: BLOOD UREA NITROGEN 13 mg/dL (7-26); BUN/CREATININE RATIO 15 (6-25); CALCIUM 8.8 mg/dL (8.4-10.2); CARBON DIOXIDE 22 mmol/L (22-29); CHLORIDE 106 mmol/L (98-107); CREATININE, SERUM 0.85 mg/dL (0.57-1.11); EST GLOMERULAR FILTRATION RATE > 60 ML/MIN (60-); GLUCOSE 253 mg/dL (74-118)
[2018-03-26] MEDS: PANTOPRAZOLE INJ 40 MG in SODIUM CHLORIDE 0.9% 50ML 50 ML IV SCH ×5 (05:55→22:28)
[2018-03-26] MEDS: LEVOTHYROXINE SODIUM 100 MCG/VIAL IV SCH (05:55)
[2018-03-26 06:17] LABS: ANION GAP 16.3 mmol/L (8-16)
[2018-03-26 06:21] LABS: POTASSIUM 4.3 mmol/L (3.5-5.1); SODIUM 140 mmol/L (136-145)
[2018-03-26] MEDS: HYDROMORPHONE 2MG/ML 2 MG/ML ML IV PRN ×2 (06:24→12:35)
[2018-03-26] MEDS: PROMETHAZINE 25MG/ NS 50ML (IV) IV PRN (06:24)
[2018-03-26 07:40] LABS: CHOL/HDL RATIO 2.8 (3.0-3.6)
[2018-03-26 08:00] LABS: THYROID STIMULATING HORMONE 0.66 uIU/mL (0.350-4.940)
[2018-03-26] MEDS ORDERED: GADOBENATE DIMEGLUMINE 1 ML IV ONE (09:13)
--- NOTE | 2018-03-26 10:53 | Diagnostic Imaging Report ---
EXAM: MRI MRCP O DATE: 03/26/2018 2:09 AM INDICATION: Abdominal pain. Abnormal finding on ERCP. COMPARISON: ERCP dated 03/25/2018. CT abdomen/pelvis dated 03/20/2018 TECHNIQUE: Multi planar multi sequential MRCP images were obtained without and with administration of 20 cc of intravenous MultiHance. FINDINGS: Mild hepatic signal loss on out of phase images, suggestive of steatosis. No focal hepatic lesion Status post cholecystectomy. Mild central pneumobilia. MRCP images are very limited. Distal common bile duct is within normal limits without definite evidence of filling defect. No splenomegaly. No adrenal nodules. No hydronephrosis. No renal mass. Nonspecific mild bilateral perinephric edema. Pancreas is unremarkable. No pancreatic ductal dilatation. Visualized bowel loops are unremarkable. No evidence of bowel obstruction. A second portion duodenal diverticulum is suspected. IMPRESSION: Limited MRCP images. The common bile duct is within normal limits without definite evidence of filling defect. Limited for evaluation of right and left hepatic ducts. Status post cholecystectomy with mild central pneumobilia. Mild hepatic steatosis. Signed by: Dr. Westley Luna MD on 03/26/2018 10:50 AM
[2018-03-26] MEDS ORDERED: DEXTROSE 50% SYRINGE 50 ML IV PRN (16:45)
[2018-03-26] MEDS: LEVOFLOXACIN 750MG/D5W 150ML 150 ML IV SCH (19:24)
[2018-03-26] MEDS ORDERED: INSULIN DETEMIR 100 UNIT/ML PEN SQ SCH (21:00)
[2018-03-26] MEDS: INSULIN REGULAR, HUMAN 100 UNIT/1 ML 3ML VIAL SQ SCH (21:44)
[2018-03-26] MEDS: INSULIN DETEMIR 100 UNIT/ML PEN SQ SCH (21:44)
[2018-03-27] VITALS (7 sets, daily range): BP systolic 106–143; BP diastolic 51–74
[2018-03-27] MEDS ORDERED: BISACODYL 5 MG TAB EC PO STA (00:16)
[2018-03-27] MEDS: METRONIDAZOLE 500MG/NS 100ML 100 ML IV SCH ×3 (00:33→17:20)
[2018-03-27] MEDS ORDERED: BISACODYL 5 MG TAB EC PO ONE ×3 (00:45→01:45)
[2018-03-27] MEDS: SODIUM CHLORIDE 0.9% 1000ML 1,000 ML IV SCH ×2 (01:03→18:00)
[2018-03-27] MEDS: PANTOPRAZOLE INJ 40 MG in SODIUM CHLORIDE 0.9% 50ML 50 ML IV SCH ×4 (04:16→23:15)
[2018-03-27] MEDS: HYDROMORPHONE 2MG/ML 2 MG/ML ML IV PRN ×3 (04:17→21:34)
[2018-03-27 05:32] LABS: BASOPHILS % 0.1 % (0.0-1.0); HEMATOCRIT 31.7 % (34.2-44.1); HEMOGLOBIN 11.1 g/dL (12.0-16.0); LYMPHOCYTES # (AUTO) 2.3 (1.0-3.2); LYMPHOCYTES % 23.7 % (18.0-39.1); MEAN CORPUSCULAR HEMOGLOBIN 32.5 pg (28-32); MEAN CORPUSCULAR VOLUME 92.7 fL (81-99); MONOCYTES # (AUTO) 0.6 (0.2-0.8); MONOCYTES % 5.7 % (4.4-11.3); NEUTROPHILS # (AUTO) 6.9 (2.1-6.9); NEUTROPHILS % 70.1 % (38.7-80.0); PLATELET COUNT 226 x10e3/uL (140-360); RED BLOOD COUNT 3.42 x10e6/uL (3.6-5.1); RED CELL DISTRIBUTION WIDTH 12.6 % (11.7-14.4)
[2018-03-27] MEDS: LEVOTHYROXINE SODIUM 100 MCG/VIAL IV SCH (05:51)
[2018-03-27] MEDS: PROMETHAZINE 25MG/ NS 50ML (IV) IV PRN ×3 (05:53→21:34)
[2018-03-27 05:54] LABS: ANION GAP 15.9 mmol/L (8-16); BLOOD UREA NITROGEN 13 mg/dL (7-26); BUN/CREATININE RATIO 17 (6-25); CALCIUM 8.9 mg/dL (8.4-10.2); CARBON DIOXIDE 24 mmol/L (22-29); CHLORIDE 109 mmol/L (98-107); CREATININE, SERUM 0.78 mg/dL (0.57-1.11); EST GLOMERULAR FILTRATION RATE > 60 ML/MIN (60-); GLUCOSE 104 mg/dL (74-118); POTASSIUM 3.9 mmol/L (3.5-5.1); SODIUM 145 mmol/L (136-145)
[2018-03-27] MEDS: INSULIN REGULAR, HUMAN 100 UNIT/1 ML 3ML VIAL SQ SCH ×4 (07:30→20:33)
[2018-03-27] MEDS: INSULIN DETEMIR 100 UNIT/ML PEN SQ SCH ×2 (09:00→20:34)
--- NOTE | 2018-03-27 17:38 | Progress Note ---
DATE: March 26, 2018 TIME: 7:30 a.m. OVERNIGHT: The patient feels better. REVIEW OF SYSTEMS: Denies any dizziness or chest pain. Denies any fever, chills, sweats, nausea, vomiting, or diarrhea. Denies any headache, back pain, or vision changes. OBJECTIVE VITAL SIGNS: Reviewed. GENERAL: A tired-appearing woman resting in bed. HEENT: Anicteric. CARDIOVASCULAR: Normal S1 and S2. LUNGS: Moderate breath sounds. ABDOMEN: Soft and nondistended. She has tenderness in the right upper quadrant abdomen, but less tender today. EXTREMITIES: No edema. SKIN: Dry. PSYCHIATRIC: Normal affect. NEUROLOGIC: Alert and oriented x3. LABS: Reviewed. MEDICATIONS: Reviewed. ASSESSMENT: A 52-year-old woman with: 1. Recurrent cholangitis. 2. Biliary disease. 3. Status post sphincteroplasty. 4. Fever. 5. Hypokalemia. 6. Diabetes mellitus. 7. Crohn's disease. 8. Celiac disease. 9. Chronic James-Smart virus infection. 10. Gastroesophageal reflux disease. 11. Fibromyalgia. 12. Hypothyroidism. PLAN 1. Check TSH. 2. Check lipid panel. 3. Check hemoglobin A1c. 4. MRCP planned. 5. The patient is improving, and we will continue to monitor closely and continue broad-spectrum antibiotics and IV fluids. Job#: [id number] CRISTIANE
--- NOTE | 2018-03-27 17:52 | Progress Note ---
DATE: March 27, 2018 TIME: 1340. OVERNIGHT: No acute events. REVIEW OF SYSTEMS: The patient denies any chest pain, shortness of breath, or dizziness. Patient denies headache, blurry vision, nausea, vomiting, constipation, back pain or vision changes. Patient does report slight diarrhea related to medication regimen, abdominal tenderness, and slight anorexia. OBJECTIVE VITAL SIGNS: T 97.7, P 63, R 20, BP 106/51, SpO2 98% on RA. GENERAL APPEARANCE: This is a tired-appearing middle age woman, resting in bed. HEENT: Normocephalic without sinus tenderness , PERRLA. Oral mucosa is moist and intact. Trachea midline. CV: Normal S1 and S2 without click, murmur, or rubs. LUNGS: Bilateral breath sounds. Clear to auscultation in all chacon with moderate excursion. ABDOMEN: Soft and nondistended. Tenderness to right upper/left upper quadrant in epigastric region with voluntary guarding. EXTREMITIES: No edema or calf tenderness. NEUROLOGIC: A and O x3. Moves all extremities. No gross defects noted on examination. SKIN: Dry. PSYCHIATRIC: Flat affect. LABS: WBC 9.8, H and H 11.1/31.7, platelets 226. Na 145, K3.9, CL 109, CO2 of 24, gap 15.9, BUN 13, creatinine 0.78, GFR great than 16 with point of care glucose ranging from 339 to 105. CA 8.9. MEDICATIONS 1. Dilaudid p.r.n. 2. Protonix IV q.5. 3. Flagyl IV q.8. 4. Synthroid 75 mcg daily. 5. NS at 40 mL an hour. 6. Levaquin IV q.24. 7. Zofran p.r.n. 8. Insulin Levemir 50 units q.12 hours. 9. Sliding scale regular insulin. 10. Dextrose p.r.n. ASSESSMENT: This is a 52-year-old woman with; 1. Recurrent cholangitis. 2. Biliary disease. 3. Fever. 4. Hypokalemia. 5. Status post sphincteroplasty. 6. Diabetes mellitus type 2. 7. Crohn's disease. 8. Celiac disease. 9. Chronic James-Smart virus infection. 10. Gastroesophageal reflux disease. 11. Fibromyalgia. 12. Hypothyroidism. PLAN 1. Patient is status post ERCP/MRCP with sphincteroplasty. 2. Continue broad-spectrum ABX/cefepime and vancomycin. Cultures remain negative at this time. 3. Follow up electrolytes and counts in the a.m. 4. Pain management. 5. SVT for DVT. 6. IV PPI. 7. Per GI note, radiology input concerning ERCP/MRCP findings pending and continue IV antibiotics. Dictated by: Titus Saldana NP Job#: [id number] ARABELLA
[2018-03-27] MEDS: LEVOFLOXACIN 750MG/D5W 150ML 150 ML IV SCH (18:31)
[2018-03-28] VITALS: BP 142/72
[2018-03-28] MEDS: METRONIDAZOLE 500MG/NS 100ML 100 ML IV SCH ×2 (00:08→09:15)
[2018-03-28] MEDS: PANTOPRAZOLE INJ 40 MG in SODIUM CHLORIDE 0.9% 50ML 50 ML IV SCH ×2 (00:11→05:36)
[2018-03-28] MEDS ORDERED: METOCLOPRAMIDE HCL 10 MG/2ML VIAL IV ONE (00:15)
[2018-03-28] MEDS ORDERED: CHLORDIAZEPOXIDE/CLIDINIUM 1 CAP PO ONE (00:15)
[2018-03-28 04:24] VITALS: BP 135/70
[2018-03-28] MEDS: LEVOTHYROXINE SODIUM 100 MCG/VIAL IV SCH (05:37)
[2018-03-28] MEDS: HYDROMORPHONE 2MG/ML 2 MG/ML ML IV PRN (05:37)
[2018-03-28] MEDS ORDERED: METOCLOPRAMIDE HCL 10 MG/2ML VIAL IV SCH (06:00)
[2018-03-28 06:01] LABS: BASOPHILS % 0.1 % (0.0-1.0); EOSINOPHILS % 0.1 % (0.0-6.0); HEMATOCRIT 33.5 % (34.2-44.1); HEMOGLOBIN 11.4 g/dL (12.0-16.0); LYMPHOCYTES # (AUTO) 2.5 (1.0-3.2); MEAN CORPUSCULAR HEMOGLOBIN 31.9 pg (28-32); MEAN CORPUSCULAR VOLUME 93.8 fL (81-99); MONOCYTES # (AUTO) 0.4 (0.2-0.8); MONOCYTES % 6.2 % (4.4-11.3); NEUTROPHILS # (AUTO) 4.1 (2.1-6.9); NEUTROPHILS % 58.2 % (38.7-80.0); PLATELET COUNT 252 x10e3/uL (140-360); RED BLOOD COUNT 3.57 x10e6/uL (3.6-5.1)
[2018-03-28 06:29] LABS: ALANINE AMINOTRANSFERASE 30 IU/L (0-55); ALBUMIN 3.1 g/dL (3.5-5.0); ALKALINE PHOSPHATASE 79 IU/L (40-150); ANION GAP 14.6 mmol/L (8-16); BLOOD UREA NITROGEN 7 mg/dL (7-26); BUN/CREATININE RATIO 8 (6-25); CALCIUM 8.5 mg/dL (8.4-10.2); CARBON DIOXIDE 26 mmol/L (22-29); CHLORIDE 105 mmol/L (98-107); EST GLOMERULAR FILTRATION RATE > 60 ML/MIN (60-); GLUCOSE 106 mg/dL (74-118); POTASSIUM 3.6 mmol/L (3.5-5.1); SODIUM 142 mmol/L (136-145)
[2018-03-28] MEDS: INSULIN REGULAR, HUMAN 100 UNIT/1 ML 3ML VIAL SQ SCH (07:30)
[2018-03-28] MEDS ORDERED: CHLORDIAZEPOXIDE/CLIDINIUM 1 CAP PO SCH (07:30)
[2018-03-28 08:00] VITALS: BP 119/57
[2018-03-28] MEDS ORDERED: Insulin Detemir SQ (08:54)
[2018-03-28] MEDS ORDERED: LIBRAX CAPSULE1 EACH PO (08:54)
[2018-03-28] MEDS: INSULIN DETEMIR 100 UNIT/ML PEN SQ SCH (09:41)
[2018-03-29] MEDS ORDERED: MICARDIS40 MG PO (00:57)
--- OUTSIDE RECORDS SUMMARY | 2018-03-29 13:10 | XMS REPORT | Clinical Summary ---
Author Author [facility] Address Unknown Phone Unavailable Care Team Providers Care Ham Trimmer Name Role Phone PCP Unavailable Allergies Active [...] INFLUENZA VACCINE 03/14/2018 Results Not on fileafter 03/23/2017
--- OUTSIDE RECORDS SUMMARY | 2018-03-29 13:10 | XMS REPORT | Clinical Summary ---
Author Author [facility] Address Unknown Phone Unavailable Care Team Providers Care Rock Wool Applicator Name Role Phone Jovan Newman MD PCP [...] INFLUENZA VACCINE 01/12/2018 Results Not on fileafter 03/23/2017 Insurance Payer Benefit Subscriber ID Type Phone Address Plan / Group BCBS BCBS xxxxxxxxxxxx PPO CHOICE PPO/[employer] [place] [address]
--- NOTE | 2018-06-08 07:33 | Operative Report ---
DATE OF PROCEDURE: March 25, 2018 REFERRING PHYSICIAN: Dr. Mitail El PROCEDURE PERFORMED: Endoscopic retrograde cholangiopancreatography and sphincterotomy. INDICATIONS FOR ERCP: Right upper quadrant pain, fever and MRCP. MEDICATION: Patient was done under general endotracheal anesthesia. PROCEDURE: With the patient in the prone position, the flexible fiberoptic side-viewing scope was inserted into the oropharynx with ease and advanced all the way to the 2nd portion of the duodenum. The ampulla was identified. Patient apparently had a sphincteroplasty procedure. The ampulla was then cannulated with ease, and a cholangiogram was done, which revealed some air bubbles, but there was an obvious paucity of intrahepatic radicals. This was followed by endoscopic retrograde sphincterotomy and balloon sweep. No stones were noted. The scope was subsequently withdrawn. Patient tolerated the procedure well. IMPRESSION 1. Status post sphincteroplasty. 2. Cholangiogram revealed air bubbles. ?Paucity of intrahepatic radicals. 3. Endoscopic retrograde sphincterotomy was carried out followed by balloon sweep. No stones were retrieved. Will review images of the endoscopic retrograde cholangiopancreatography and findings with the radiologist. Job#: [id number] RI cc:MITALI EL MD
== END 2018-03-28 10:31 | disposition home or self-care (01) | DRG 445 ==
LOC: MED/SURG2 15:01
PROVIDERS: ADMIT Internal Medicine; ATTEND Internal Medicine
PROC: 0F7C8ZZ Dilation of Ampulla of Vater, Via Natural or Artificial Opening Endoscopic (ICD-10-PCS; 2018-03-25)
PROC: 0F758ZZ Dilation of Right Hepatic Duct, Via Natural or Artificial Opening Endoscopic (ICD-10-PCS; 2018-03-25)
PROC: 0F768ZZ Dilation of Left Hepatic Duct, Via Natural or Artificial Opening Endoscopic (ICD-10-PCS; 2018-03-25)
PROC: 0F798ZZ Dilation of Common Bile Duct, Via Natural or Artificial Opening Endoscopic (ICD-10-PCS; 2018-03-25)
PROC: 0F7C8ZZ Dilation of Ampulla of Vater, Via Natural or Artificial Opening Endoscopic (ICD-10-PCS; 2018-03-25)
PROC: BF101ZZ Fluoroscopy of Bile Ducts using Low Osmolar Contrast (ICD-10-PCS; principal; 2018-03-25 14:17)
DX: K83.09 Other cholangitis (principal); K50.90 Crohn's disease, unspecified, without complications; K83.9 Disease of biliary tract, unspecified; E87.6 Hypokalemia; K90.0 Celiac disease; B27.00 Gammaherpesviral mononucleosis without complication; K21.9 Gastro-esophageal reflux disease without esophagitis; M79.7 Fibromyalgia; K76.0 Fatty (change of) liver, not elsewhere classified; E11.40 Type 2 diabetes mellitus with diabetic neuropathy, unspecified; Z79.4 Long term (current) use of insulin; R53.82 Chronic fatigue, unspecified; E03.9 Hypothyroidism, unspecified; I11.0 Hypertensive heart disease with heart failure; I50.9 Heart failure, unspecified; I11.9 Hypertensive heart disease without heart failure; K86.81 Exocrine pancreatic insufficiency
CPT/HCPCS: 36415; 43260; 74018; 74183; 74328; 74470; 80048; 80053; 80061; 81001; 82948; 83036; 83690; 84443; 85025; 86039; 86255; 87040; 96360; J1100; J1610; J1980; J2001; J2250; J2270; J2405; J2550; J2765; J7030

== ENCOUNTER 2018-03-28 22:24 | Observation (INO) | payer BC ==
[~2018-03-28] VITALS: Ht 162.6 cm; Wt 107.5 kg
[~2018-03-28 22:24] MED LIST changes: +Insulin Detemir SQ
[2018-03-28] MEDS ORDERED: HYDROMORPHONE 2MG/ML 2 MG/ML ML IV STA (23:11)
[2018-03-28] MEDS ORDERED: ONDANSETRON HCL INJ 2 MG/ML VIAL IV STA (23:11)
[2018-03-28] MEDS ORDERED: PANTOPRAZOLE 40 MG 10ML VIAL IV STA (23:11)
[2018-03-28] MEDS ORDERED: SODIUM CHLORIDE 0.9% 1000ML 1,000 ML IV STA (23:11)
[2018-03-28] MEDS ORDERED: ACETAMINOPHEN 1000 MG/100 ML IV STA (23:11)
[2018-03-28 23:22] LABS: BASOPHILS % 0.4 % (0.0-1.0); EOSINOPHILS % 0.3 % (0.0-6.0); HEMATOCRIT 35.6 % (34.2-44.1); HEMOGLOBIN 12.4 g/dL (12.0-16.0); LYMPHOCYTES # (AUTO) 2.2 (1.0-3.2); LYMPHOCYTES % 29.7 % (18.0-39.1); MEAN CORPUSCULAR HEMOGLOBIN 32.3 pg (28-32); MEAN CORPUSCULAR HGB CONC 34.8 g/dL (31-35); MEAN CORPUSCULAR VOLUME 92.7 fL (81-99); MONOCYTES # (AUTO) 0.6 (0.2-0.8); NEUTROPHILS # (AUTO) 4.6 (2.1-6.9); NEUTROPHILS % 61.2 % (38.7-80.0); PLATELET COUNT 288 x10e3/uL (140-360); RED BLOOD COUNT 3.84 x10e6/uL (3.6-5.1); RED CELL DISTRIBUTION WIDTH 12.6 % (11.7-14.4)
[2018-03-28 23:26] LABS: INR 0.88; PROTHROMBIN TIME 12.8 seconds (11.9-14.5)
[2018-03-28 23:27] LABS: PARTIAL THROMBOPLASTIN TIME 24.1 seconds (23.8-35.5)
[2018-03-28 23:35] LABS: ALANINE AMINOTRANSFERASE 29 IU/L (0-55); ALBUMIN 3.4 g/dL (3.5-5.0); ALBUMIN/GLOBULIN RATIO 0.9 (0.8-2.0); ALKALINE PHOSPHATASE 96 IU/L (40-150); AMYLASE 20 U/L (25-125); ANION GAP 17.1 mmol/L (8-16); BLOOD UREA NITROGEN 11 mg/dL (7-26); BUN/CREATININE RATIO 11 (6-25); CALCIUM 8.8 mg/dL (8.4-10.2); CARBON DIOXIDE 21 mmol/L (22-29); CHLORIDE 103 mmol/L (98-107); CREATINE KINASE 188 IU/L (29-168); CREATININE, SERUM 1.03 mg/dL (0.57-1.11); EST GLOMERULAR FILTRATION RATE 56 ML/MIN (60-); GLUCOSE 266 mg/dL (74-118); LIPASE 23 U/L (8-78); MAGNESIUM 1.9 MG/DL (1.3-2.1); POTASSIUM 4.1 mmol/L (3.5-5.1); SODIUM 137 mmol/L (136-145)
[2018-03-28 23:41] LABS: BILIRUBIN,URINE NEGATIVE (NEGATIVE); CLARITY,URINE CLEAR (CLEAR); COLOR,URINE YELLOW (YELLOW); KETONES,URINE NEGATIVE (NEGATIVE); LEUKOCYTE ESTERASE ,URINE NEGATIVE (NEGATIVE); NITRITE,URINE NEGATIVE (NEGATIVE); PROTEIN,URINE DIPSTICK NEGATIVE (NEGATIVE); URINE UROBILINOGEN 0.2 mg/dL (0.2 - 1)
[2018-03-28] MEDS ORDERED: METRONIDAZOLE 500MG/NS 100ML 100 ML IV SCH (23:45)
[2018-03-28 23:50] LABS: BACTERIA,URINE FEW /HPF; EPITHELIAL CELLS,URINE RARE /LPF
[2018-03-28 23:51] LABS: YEAST,URINE RARE
[2018-03-29] MEDS: CEFEPIME HCL 1 GM VIAL IV SCH ×2 (00:27→12:23)
[2018-03-29] MEDS ORDERED: METRONIDAZOLE 500MG/NS 100ML 100 ML IV SCH (00:30)
[2018-03-29] MEDS ORDERED: MICARDIS40 MG PO (00:57)
[2018-03-29] MEDS ORDERED: DEXTROSE 50% SYRINGE 50 ML IV PRN (01:00)
[2018-03-29] MEDS ORDERED: HYDROMORPHONE 1MG/1ML INJ IV PRN (01:00)
[2018-03-29] MEDS: SODIUM CHLORIDE 0.9% 1000ML 1,000 ML IV SCH ×3 (01:06→16:41)
[2018-03-29] MEDS ORDERED: HYDROMORPHONE 2MG/ML 2 MG/ML ML ONE ×2 (04:15→09:51)
[2018-03-29] MEDS ORDERED: NON-FORMULARY MEDICATION (Levothyroxine Sodium 150 MCG) PO SCH (07:30)
[2018-03-29] MEDS: METRONIDAZOLE 500MG/NS 100ML 100 ML IV SCH ×3 (08:13→21:13)
[2018-03-29] MEDS: LEVOTHYROXINE SODIUM 75 MCG TAB PO SCH (08:14)
[2018-03-29 08:19] LABS: CREATINE KINASE 133 IU/L (29-168)
[2018-03-29] MEDS ORDERED: INSULIN DETEMIR 50 UNIT SQ SCH (09:00)
[2018-03-29] MEDS: INSULIN REGULAR, HUMAN 100 UNIT/1 ML 3ML VIAL SQ SCH ×4 (09:40→21:00)
[2018-03-29] MEDS: FLUCONAZOLE 100 MG/NS 50 ML 50 ML IV SCH (09:41)
[2018-03-29] MEDS: INSULIN DETEMIR 100 UNIT/ML PEN SQ SCH ×2 (09:41→21:00)
[2018-03-29] MEDS: PANTOPRAZOLE 40 MG 10ML VIAL IV SCH (09:41)
[2018-03-29] MEDS: ONDANSETRON HCL INJ 2 MG/ML VIAL IV PRN ×2 (09:42→21:00)
[2018-03-29 11:45] VITALS: BP 185/84
[2018-03-29] MEDS: CHLORDIAZEPOXIDE/CLIDINIUM 1 CAP PO SCH ×3 (12:52→20:46)
--- OUTSIDE RECORDS SUMMARY | 2018-03-29 14:28 | XMS REPORT | Clinical Summary ---
Author Author [facility] Address Unknown Phone Unavailable Care Team Providers Care Plate Glass Grinder Name Role Phone PCP Unavailable Allergies Active [...] INFLUENZA VACCINE 03/14/2018 Results Not on fileafter 03/27/2017
--- OUTSIDE RECORDS SUMMARY | 2018-03-29 14:28 | XMS REPORT | Clinical Summary ---
Author Author [facility] Address Unknown Phone Unavailable Care Team Providers Care Director Of Federal Sales Name Role Phone Jovan Newman MD PCP [...] INFLUENZA VACCINE 01/12/2018 Results Not on fileafter 03/27/2017 Insurance Payer Benefit Subscriber ID Type Phone Address Plan / Group BCBS BCBS xxxxxxxxxxxx PPO CHOICE PPO/[address] [place] [address]
--- OUTSIDE RECORDS SUMMARY | 2018-03-29 14:29 | XMS REPORT | Clinical Summary ---
Author Author [facility] Address Unknown Phone Unavailable Care Team Providers Care Camelid Fiber Sorter Name Role Phone PCP Unavailable Allergies Active [...] INFLUENZA VACCINE 03/14/2018 Results Not on fileafter 03/28/2017
--- OUTSIDE RECORDS SUMMARY | 2018-03-29 14:29 | XMS REPORT | Clinical Summary ---
Author Author [facility] Address Unknown Phone Unavailable Care Team Providers Care Manager Physical Name Role Phone Jovan Newman MD PCP [...] INFLUENZA VACCINE 01/12/2018 Results Not on fileafter 03/28/2017 Insurance Payer Benefit Subscriber ID Type Phone Address Plan / Group BCBS BCBS xxxxxxxxxxxx PPO CHOICE PPO/[employer] [place] [address]
[2018-03-29 16:00] VITALS: BP 134/65
[2018-03-29 16:22] LABS: CREATINE KINASE 123 IU/L (29-168)
[2018-03-29 20:00] VITALS: BP 134/65
[2018-03-29 20:25] VITALS: BP 165/81
[2018-03-29] MEDS: HYDROMORPHONE 2MG/ML 2 MG/ML ML IV PRN (21:00)
[2018-03-30] VITALS (8 sets, daily range): BP systolic 114–166; BP diastolic 59–88
[2018-03-30] MEDS: SODIUM CHLORIDE 0.9% 1000ML 1,000 ML IV SCH ×3 (00:52→16:59)
[2018-03-30] MEDS: CEFEPIME HCL 1 GM VIAL IV SCH ×3 (00:52→23:34)
[2018-03-30] MEDS: ONDANSETRON HCL INJ 2 MG/ML VIAL IV PRN ×3 (01:04→23:22)
[2018-03-30] MEDS: HYDROMORPHONE 2MG/ML 2 MG/ML ML IV PRN ×3 (01:04→23:22)
[2018-03-30 05:09] LABS: BASOPHILS % 0.3 % (0.0-1.0); EOSINOPHILS # (AUTO) 0.1 (0.0-0.4); EOSINOPHILS % 1.6 % (0.0-6.0); HEMATOCRIT 31.5 % (34.2-44.1); HEMOGLOBIN 10.9 g/dL (12.0-16.0); LYMPHOCYTES % 28.4 % (18.0-39.1); MEAN CORPUSCULAR HEMOGLOBIN 32.4 pg (28-32); MEAN CORPUSCULAR HGB CONC 34.6 g/dL (31-35); MEAN CORPUSCULAR VOLUME 93.8 fL (81-99); MONOCYTES # (AUTO) 0.4 (0.2-0.8); MONOCYTES % 6.3 % (4.4-11.3); NEUTROPHILS # (AUTO) 4.5 (2.1-6.9); NEUTROPHILS % 63.1 % (38.7-80.0); PLATELET COUNT 193 x10e3/uL (140-360); RED BLOOD COUNT 3.36 x10e6/uL (3.6-5.1); RED CELL DISTRIBUTION WIDTH 12.6 % (11.7-14.4)
[2018-03-30 05:31] LABS: ALANINE AMINOTRANSFERASE 22 IU/L (0-55); ALBUMIN 2.8 g/dL (3.5-5.0); ALKALINE PHOSPHATASE 68 IU/L (40-150); ANION GAP 13.7 mmol/L (8-16); BLOOD UREA NITROGEN 5 mg/dL (7-26); BUN/CREATININE RATIO 7 (6-25); CALCIUM 8.3 mg/dL (8.4-10.2); CARBON DIOXIDE 26 mmol/L (22-29); CHLORIDE 104 mmol/L (98-107); CREATININE, SERUM 0.76 mg/dL (0.57-1.11); EST GLOMERULAR FILTRATION RATE > 60 ML/MIN (60-); GLUCOSE 90 mg/dL (74-118); POTASSIUM 3.7 mmol/L (3.5-5.1); SODIUM 140 mmol/L (136-145)
[2018-03-30] MEDS: LEVOTHYROXINE SODIUM 75 MCG TAB PO SCH (06:18)
[2018-03-30] MEDS: METRONIDAZOLE 500MG/NS 100ML 100 ML IV SCH ×3 (06:18→20:25)
[2018-03-30] MEDS: INSULIN REGULAR, HUMAN 100 UNIT/1 ML 3ML VIAL SQ SCH ×4 (07:30→20:40)
[2018-03-30] MEDS: CHLORDIAZEPOXIDE/CLIDINIUM 1 CAP PO SCH ×4 (07:55→20:25)
[2018-03-30] MEDS: PANTOPRAZOLE 40 MG 10ML VIAL IV SCH (08:54)
[2018-03-30] MEDS: FLUCONAZOLE 100 MG/NS 50 ML 50 ML IV SCH (08:55)
[2018-03-30] MEDS: INSULIN DETEMIR 100 UNIT/ML PEN SQ SCH ×2 (08:58→20:41)
[2018-03-30] MEDS: TELMISARTAN 40 MG TAB PO SCH (14:16)
[2018-03-31] VITALS (8 sets, daily range): BP systolic 126–185; BP diastolic 61–79
[2018-03-31] MEDS: LEVOTHYROXINE SODIUM 75 MCG TAB PO SCH (05:12)
[2018-03-31] MEDS: METRONIDAZOLE 500MG/NS 100ML 100 ML IV SCH ×2 (05:12→14:28)
[2018-03-31] MEDS ORDERED: ACETAMINOPHEN 325 MG TAB PO PRN (05:15)
[2018-03-31] MEDS: HYDROMORPHONE 2MG/ML 2 MG/ML ML IV PRN ×3 (05:53→20:29)
[2018-03-31] MEDS: ONDANSETRON HCL INJ 2 MG/ML VIAL IV PRN ×3 (05:53→20:28)
[2018-03-31] MEDS: INSULIN REGULAR, HUMAN 100 UNIT/1 ML 3ML VIAL SQ SCH ×4 (07:30→20:28)
[2018-03-31] MEDS: PANTOPRAZOLE 40 MG 10ML VIAL IV SCH (08:38)
[2018-03-31] MEDS: CHLORDIAZEPOXIDE/CLIDINIUM 1 CAP PO SCH ×4 (08:38→20:28)
[2018-03-31] MEDS: FLUCONAZOLE 100 MG/NS 50 ML 50 ML IV SCH (08:38)
[2018-03-31] MEDS: SODIUM CHLORIDE 0.9% 1000ML 1,000 ML IV SCH ×3 (08:38→20:28)
[2018-03-31] MEDS: TELMISARTAN 40 MG TAB PO SCH (08:40)
[2018-03-31] MEDS ORDERED: TELMISARTAN 40 MG TAB PO SCH (09:00)
[2018-03-31] MEDS: INSULIN DETEMIR 100 UNIT/ML PEN SQ SCH ×2 (09:05→20:28)
[2018-03-31] MEDS: CEFEPIME HCL 1 GM VIAL IV SCH (12:15)
--- NOTE | 2018-03-31 13:11 | Progress Note ---
DATE: March 31, 2018 MEDICINE PROGRESS NOTE SUBJECTIVE: The patient is currently doing well. She does have episodic fevers while here in the hospital. She is started on a diet. Patient most recently had a status post ERCP with MRCP with sphincteroplasty. She is on IV antibiotics currently but continues to have some low grade fevers. ID will be consulted. VITAL SIGNS: Temperature is 99.9, T-max of 100.4, pulse is 90, respiratory rate is 20, blood pressure is 153/78, and pulse ox 97% on room air. LAB FINDINGS: Show white count of 7, hemoglobin 10.9, hematocrit 31.5, and platelets of 193. Coagulation: PT 12.8, INR 0.88, and PTT 24. Chemistry: Sodium 140, potassium is 3.7, chloride 104, bicarbonate is 26, anion gap of 13, BUN is 5, creatinine was 0.76, and glucose is 90. LFTs were normal. Albumin was 2.8. Troponins were negative. Urinalysis was negative. MICROBIOLOGY: Blood and urine cultures were negative. IMAGING STUDIES: None. PHYSICAL EXAMINATION GENERAL: Not in acute distress, alert and oriented x3. Cooperative on examination. HEENT: Head is normocephalic and atraumatic. Eyes: Pupils are equal and reactive to light bilaterally. Extraocular movements are intact bilaterally. NECK: Supple. Good range of motion. THROAT: No evidence of any erythema or exudates in the posterior pharynx. Has poor dentition. PULMONARY: Clear to auscultation bilaterally. No wheezing. No rales. No rhonchi. No crackles appreciated. CARDIOVASCULAR: Positive S1, S2. No murmurs, rubs, or gallops appreciated. ABDOMEN: Soft and nondistended. Tender to palpation in the epigastric region. Bowel sounds are present. No guarding or rebound. MUSCULOSKELETAL: Strength is 5/5 throughout. No evidence of any musculoskeletal deficit on examination. No weakness appreciated. NEUROLOGIC: Cranial nerves II through XII are grossly intact. No evidence of any neurological deficit on exam. SKIN: Intact. Warm to touch. Good cap refill. PSYCHIATRIC: Normal affect and mood. EXTREMITIES: No edema. Good range of motion. IMPRESSION 1. Concerns for recurrent ascending cholangitis with recent endoscopic retrograde cholangiopancreatography manipulation. 2. Fever with recent status post sphincteroplasty. 3. Type 2 diabetes. 4. History of Crohn's and celiac disease. 5. Fibromyalgia. PLAN: At this time, GI is following. Patient is on IV antibiotics. She continues to have low grade fevers at this time. Will likely benefit from a crowley CT but at this time, I will go ahead and get an ID consult to further evaluate. Blood and urine cultures were found to be negative, so the etiology of her low grade fevers are unknown at this time. She will truly benefit from a crowley CT and we will defer that to the infectious disease specialist. Going to continue with same plan of care. Continue with same medications. Will get a.m. labs as well. Job#: [id number] IRENE
--- NOTE | 2018-03-31 17:16 | Diagnostic Imaging Report ---
EXAMINATION: CT of the abdomen and pelvis with contrast. TECHNIQUE: Spiral CT images of the abdomen and pelvis were performed from the lung bases to the lesser trochanters after the intravenous administration of 100 cc of Isovue 370 and the oral administration of water. Coronal and sagittal reformatted images were obtained. COMPARISON: MRI/MRCP 03/26/2018 CLINICAL HISTORY:Abdominal pain, fever, right upper quadrant pain DISCUSSION: ABDOMEN/PELVIS: LOWER THORAX:Unremarkable. HEPATOBILIARY: Normal hepatic size and contour. Mild steatosis. No focal lesions. No intra or extrahepatic biliary ductal dilation. Pneumobilia GALLBLADDER: Cholecystectomy clips. SPLEEN: No splenomegaly. PANCREAS: No focal masses or ductal dilatation. ADRENALS: No adrenal nodules. KIDNEYS/URETERS: No hydronephrosis, stones, or solid mass lesions. PELVIC ORGANS/BLADDER: Bladder is unremarkable. No focal lesions or thickening. Uterus is absent. No adnexal masses. PERITONEUM/RETROPERITONEUM: No free air or fluid. LYMPH NODES: No intra-abdominal, retroperitoneal, pelvic or inguinal lymphadenopathy. VESSELS: The celiac trunk,superior and inferior mesenteric and bilateral renal arteries are patent The portal, superior mesenteric and splenic veins are patent. Atherosclerotic calcification of the distal abdominal aorta proximally and vessels. GI TRACT: No bowel dilation or evidence of obstruction. No pericolonic inflammatory changes. Appendix is identified and normal in caliber. BONES AND SOFT TISSUE: No bony destructive lesions. No soft tissue abnormalities. IMPRESSION: 1. No acute abdominopelvic abnormalities. Specifically, no acute abnormal findings, fluid collections or masses to explain the patient's pain. Bowel shows no dilation or obstruction. 2. Mild hepatic steatosis. 3. Status post cholecystectomy with pneumobilia, stable since prior exam Signed by: Dr. Vinay Jiménez M.D. on 03/31/2018 5:13 PM
--- NOTE | 2018-03-31 17:33 | Consultation ---
DATE OF CONSULTATION: INFECTIOUS DISEASE CONSULTATION REASON FOR CONSULTATION: Fever. HISTORY OF PRESENT ILLNESS: This is a patient who is a 52-year-old white female who has been having a problem with her liver for several years. The patient has history of biliary disease with stenosis. She had been having on-and-off issues. She is well known to Dr. Tian Mahmood. She has taken several courses of oral Flagyl and metronidazole as an outpatient, sometimes for weeks and sometimes for months. The patient apparently started to have some abdominal discomfort and right upper quadrant pain and fever. She was seen by Dr. Mahmood, who did an MRCP and recommended ERCP; so, she had ERCP scheduled. The patient was admitted. The patient had ERCP on March 24, underwent a sphincteroplasty. PAST MEDICAL HISTORY: The patient had history of obesity, celiac disease, stage 4 fatty liver, diabetes mellitus with peripheral neuropathy, hypertension, interstitial cystitis, chronic Jaems-Smart virus positive test apparently, Crohn disease, severe pancreatitis before, sphincterotomy recently, right parotid gland infection, common bile duct stricture, recurring cholangitis, fibromyalgia, status post common bile duct exploration with a sphincteroplasty before, gastroparesis, chronic constipation, hypertension, heart disease, nonalcoholic steatohepatitis, hypothyroidism, chronic fatigue syndrome. PAST SURGICAL HISTORY: She had also a past surgical history of common bile duct exploration with sphincteroplasty in March 2014, tonsillectomy, adenoidectomy, sinus surgery, carpal tunnel surgery, multiple ERCPs before with common bile duct placement of stent and removal, liver biopsy before, temporal artery biopsy, thyroidectomy, cholecystectomy. ALLERGIES: DENIES. SOCIAL HISTORY: There is no smoking, drug abuse, alcohol abuse. She is . FAMILY HISTORY: There is a distant cousin who has autoimmune liver disease. The patient is admitted now with fever and chills, which has been on and off for some time but recently has been more persistent. She is feeling bad in general. Infectious Disease was consulted because of the presence of fever. LABORATORY DATA: Reviewed. Her white count 7.47, hemoglobin 12.4, hematocrit 35, her platelet 288. The diff was pretty much unremarkable. She had 61% segs. Her sodium 140, potassium 3.7, creatinine 0.76, glucose 153. Liver enzymes within normal limits, bilirubin 0.4, amylase 20, lipase 23. Her antimitochondrial antibody is 1124. C. diff negative. Hepatitis A and B negative, C negative. MEDICATION LIST: She is on metronidazole, Zofran, cefepime, Librax, fluconazole, Protonix, Tylenol. PHYSICAL EXAMINATION GENERAL: She is currently alert, oriented, does not seem to be in acute distress. VITAL SIGNS: She had temperature 100.4 on March 31 and 101 on admission on March 28. HEENT: She is normocephalic, does not appear icteric. NECK: Supple. CHEST: Clear bilaterally. HEART: S1 and S2. No S3 or S4, no murmur. ABDOMEN: Soft. Bowel sounds present. She did have right upper quadrant tenderness. EXTREMITIES: No edema. SKIN: There is no rash. IMPRESSION: Fever. Patient with right upper quadrant pain, but liver enzymes within normal limits, white count within normal limits. I do not think the patient has cholangitis. It seems like her liver enzyme is normal. Can discontinue antibiotic and observe the patient clinically. Consider autoimmune liver pathology. Will discuss with Dr. Mahmood. Job#: [id number] EV
[2018-03-31] MEDS ORDERED: IOPAMIDOL 370 MG/ML 200 ML INFUS..BTL INJ ONE (22:32)
[2018-03-31] MEDS ORDERED: SODIUM CHLORIDE 0.9% 50ML 50 ML ONE (22:32)
[2018-04-01 01:00] VITALS: BP 149/67
[2018-04-01] MEDS ORDERED: PANTOPRAZOLE 40 MG 10ML VIAL IV STA (02:07)
[2018-04-01] MEDS ORDERED: PANTOPRAZOL 40MG/SOD CHL 0.9% 250 ML IV SCH (02:15)
[2018-04-01] MEDS ORDERED: FLUCONAZOLE 200 MG/100 ML 100 ML IV SCH (02:15)
[2018-04-01] MEDS: HYDROMORPHONE 2MG/ML 2 MG/ML ML IV PRN ×2 (02:58→10:19)
[2018-04-01 04:30] VITALS: BP 114/66
[2018-04-01 05:21] LABS: BASOPHILS % 0.2 % (0.0-1.0); EOSINOPHILS # (AUTO) 0.1 (0.0-0.4); EOSINOPHILS % 1.4 % (0.0-6.0); HEMATOCRIT 29.9 % (34.2-44.1); HEMOGLOBIN 10.2 g/dL (12.0-16.0); LYMPHOCYTES # (AUTO) 1.5 (1.0-3.2); LYMPHOCYTES % 26.1 % (18.0-39.1); MEAN CORPUSCULAR HEMOGLOBIN 32.4 pg (28-32); MEAN CORPUSCULAR HGB CONC 34.1 g/dL (31-35); MEAN CORPUSCULAR VOLUME 94.9 fL (81-99); MONOCYTES # (AUTO) 0.5 (0.2-0.8); MONOCYTES % 7.8 % (4.4-11.3); NEUTROPHILS # (AUTO) 3.7 (2.1-6.9); NEUTROPHILS % 64.2 % (38.7-80.0); PLATELET COUNT 171 x10e3/uL (140-360); RED BLOOD COUNT 3.15 x10e6/uL (3.6-5.1); RED CELL DISTRIBUTION WIDTH 12.8 % (11.7-14.4)
[2018-04-01] MEDS: LEVOTHYROXINE SODIUM 75 MCG TAB PO SCH (05:25)
[2018-04-01] MEDS: PANTOPRAZOL 40MG/SOD CHL 0.9% 50 ML IV SCH ×2 (06:06→08:30)
[2018-04-01] MEDS: CHLORDIAZEPOXIDE/CLIDINIUM 1 CAP PO SCH ×2 (06:26→08:30)
[2018-04-01 07:31] LABS: ANION GAP 11.8 mmol/L (8-16); BLOOD UREA NITROGEN 5 mg/dL (7-26); BUN/CREATININE RATIO 7 (6-25); CALCIUM 8.1 mg/dL (8.4-10.2); CARBON DIOXIDE 25 mmol/L (22-29); CHLORIDE 108 mmol/L (98-107); CREATININE, SERUM 0.75 mg/dL (0.57-1.11); EST GLOMERULAR FILTRATION RATE > 60 ML/MIN (60-); GLUCOSE 142 mg/dL (74-118); POTASSIUM 3.8 mmol/L (3.5-5.1); SODIUM 141 mmol/L (136-145)
[2018-04-01 08:22] VITALS: BP 130/62
[2018-04-01] MEDS: INSULIN DETEMIR 100 UNIT/ML PEN SQ SCH (08:29)
[2018-04-01] MEDS: INSULIN REGULAR, HUMAN 100 UNIT/1 ML 3ML VIAL SQ SCH ×2 (08:29→12:04)
[2018-04-01] MEDS: SODIUM CHLORIDE 0.9% 1000ML 1,000 ML IV SCH (08:30)
[2018-04-01] MEDS: TELMISARTAN 40 MG TAB PO SCH (08:30)
[2018-04-01 09:20] VITALS: BP 130/62
[2018-04-01] MEDS: ONDANSETRON HCL INJ 2 MG/ML VIAL IV PRN (10:19)
[2018-04-01 12:03] VITALS: BP 130/63
--- NOTE | 2018-04-01 16:22 | Discharge Summary ---
DISCHARGE DIAGNOSES 1. Status post recent endoscopic retrograde cholangiopancreatography, presented with fever, now resolved. 2. Fever, status post sphincteroplasty recently, now resolved. 3. Type 2 diabetes. 4. History of Crohn's and celiac disease. 5. Fibromyalgia. 6. Concerns for underlying primary or secondary biliary cirrhosis per Gastrointestinal's note, in which the patient will follow up with a liver specialist [facility]. CONSULTANTS: We had GI and Infectious Disease. VITAL SIGNS: Temperature 99.4, pulse 76, respiratory rate is 20, blood pressure is 130/62, pulse ox 96% on room air. LAB FINDINGS: Show white count 5.7, hemoglobin 10.2, hematocrit is 29, platelets of 171. Coagulation: PT 12.8, INR 0.8, PTT 24. Chemistry: Sodium 141, potassium 3.8, chloride 108, bicarb 25, anion gap 11, BUN is 5, creatinine is 0.75, glucose is 142. Troponins were negative. Lipase was normal at 23. Albumin was 2.8. LFTs were normal. Total bilirubin is 0.4. Magnesium 1.9. Urinalysis was negative. MICROBIOLOGY: Blood cultures negative. Urine cultures negative. IMAGING STUDIES: CT abdomen and pelvis with IV contrast shows no acute abdominopelvic abnormalities. No acute abnormal findings, fluid collection or masses to explain the patient's pain. Bowel shows no dilatation or obstruction. Mild hepatic steatosis. Otherwise no acute findings. 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 Came in earlier in the week with complaints of fever at home. Patient was admitted, and GI was reconsulted. Patient was on broad-spectrum antibiotics. Blood and urine cultures were found to be negative. Patient continued to have low-grade fever in which ID was consulted. It was felt by the consultants that the patient's underlying low-grade fever is likely secondary to an autoimmune process due to her biliary cirrhosis. At this time, she has been afebrile prior to discharge home with no other issues for more than 24 hours. She is tolerating diet well with no other complaints. Per ID the patient does not need any antibiotics, and the patient has been cleared by both consultants for discharge. On the day of discharge vital signs stable, labs reviewed and stable. Patient seen and evaluated and examined thoroughly on the day of discharge with no other complaints. Patient verbalized understanding and agrees to plan of care, to follow up accordingly as an outpatient with the primary care physician in 1 week and GI specialist in 1 to 2 weeks and the liver specialist in [facility] in the next 1 week. DISCHARGE MEDICATIONS: See med reconciliation form. DISPOSITION: Home. CONDITION: Stable. DIET: Heart healthy. In the event of any worsening symptoms, patient advised to come back to the ED for further evaluation. Discharge summary took greater than 35 minutes. INA TYSON MD Job#: [id number] OTILIA
--- NOTE | 2018-04-09 09:51 | Diagnostic Imaging Report ---
PROCEDURE:US GUIDANCE FOR VASCULAR ACCESS COMPARISON:None. INDICATIONS:Not provided. FINDINGS:Ultrasound evaluation of potential access sites was performed. After successfully identifying a patent vessel, US guidance was used to puncture the vein. A permanent recording was created for the patient record. CONCLUSION:Successful IV access by Ultrasound guidance. Charles Batista D.O. Dictated by: Charles Batista D.O. on 04/09/2018 at 10:00 Electronically approved by: Charles Batista D.O. on 04/09/2018 at 10:00
== END 2018-04-01 14:05 | disposition home or self-care (01) ==
LOC: ER 22:24 → ERHOLD 03-29 01:27 → INTOOBSV 03-29 01:27 → IMCU 03-29 11:51
PROVIDERS: ADMIT Internal Medicine; ATTEND Internal Medicine
DX: R50.9 Fever, unspecified (principal); K74.5 Biliary cirrhosis, unspecified; E11.9 Type 2 diabetes mellitus without complications; K76.0 Fatty (change of) liver, not elsewhere classified; E66.01 Morbid (severe) obesity due to excess calories; K90.0 Celiac disease; K50.90 Crohn's disease, unspecified, without complications; N30.10 Interstitial cystitis (chronic) without hematuria; I10 Essential (primary) hypertension; E03.9 Hypothyroidism, unspecified; M79.7 Fibromyalgia; R53.82 Chronic fatigue, unspecified; Z79.4 Long term (current) use of insulin; Z68.41 Body mass index [BMI] 40.0-44.9, adult
CPT/HCPCS: 36415 ×5; 74177; 76937; 80048; 80053 ×2; 81001; 82150; 82550 ×2; 82553 ×2; 82948 ×4; 83605 ×2; 83690; 83735; 84484 ×2; 85025 ×3; 85610; 85730; 87040; 87086; 96361 ×2; 96366; 99284; G0378 ×4; J0692 ×3; J1170 ×5; J1450 ×3; J2405 ×5; J7030 ×5; Q9967; 96360

== ENCOUNTER 2020-10-23 06:58 | Emergency (ER) | payer BC ==
[~2020-10-23] VITALS: Ht 162.6 cm; Wt 107.5 kg
[2020-10-23] MEDS ORDERED: KETOROLAC TROMETHAMINE 30 MG/ML VIAL IV ONE (07:27)
[2020-10-23 08:34] LABS: BASOPHILS % 0.4 % (0.0-1.0); HEMATOCRIT 38.8 % (34.2-44.1); HEMOGLOBIN 13.3 g/dL (12.0-16.0); LYMPHOCYTES # (AUTO) 0.8 (1.0-3.2); LYMPHOCYTES % 14.2 % (18.0-39.1); MEAN CORPUSCULAR HEMOGLOBIN 31.1 pg (28-32); MEAN CORPUSCULAR HGB CONC 34.3 g/dL (31-35); MEAN CORPUSCULAR VOLUME 90.7 fL (81-99); MONOCYTES # (AUTO) 0.3 (0.2-0.8); MONOCYTES % 4.8 % (4.4-11.3); NEUTROPHILS # (AUTO) 4.3 (2.1-6.9); NEUTROPHILS % 79.1 % (38.7-80.0); PLATELET COUNT 230 x10e3/uL (140-360); RED BLOOD COUNT 4.28 x10e6/uL (3.6-5.1); RED CELL DISTRIBUTION WIDTH 11.7 % (11.7-14.4)
[2020-10-23] MEDS ORDERED: SODIUM CHLORIDE 0.9% 1000ML 1,000 ML IV SCH (08:45)
[2020-10-23 09:05] LABS: ALBUMIN 2.6 g/dL (3.5-5.0); ALBUMIN/GLOBULIN RATIO 0.5 (0.8-2.0); ANION GAP 16.5 mmol/L (8-16); CALCIUM 8.7 mg/dL (8.4-10.2); CREATININE, SERUM 1.05 mg/dL (0.57-1.11); POTASSIUM 3.5 mmol/L (3.5-5.1)
[2020-10-23] MEDS ORDERED: ONDANSETRON ODT4 MG PO (09:15)
[2020-10-23] MEDS ORDERED: ONDANSETRON HCL INJ 2MG/ML 2ML 2 MG/ML VIAL IV ONE (10:23)
== END 2020-10-23 10:55 | disposition home or self-care (01) ==
LOC: ER 07:02
DX: U07.1 COVID-19 (principal); R50.9 Fever, unspecified; R05 Cough; I10 Essential (primary) hypertension; E11.65 Type 2 diabetes mellitus with hyperglycemia; K76.9 Liver disease, unspecified; B27.00 Gammaherpesviral mononucleosis without complication; K75.81 Nonalcoholic steatohepatitis (NASH)
CPT/HCPCS: 36415; 71046; 80053; 85025; 99284; J1885; J2405; J7030; U0002

== ENCOUNTER → 2020-11-26 | Outpatient (CLI) | payer BC ==
[~2020-11-26] MED LIST changes: +ONDANSETRON ODT4 MG PO
== END ==
LOC: DX 09:32
PROVIDERS: ATTEND Internal Medicine Gastroenterology
DX: K62.89 Other specified diseases of anus and rectum (principal); K50.914 Crohn's disease, unspecified, with abscess
CPT/HCPCS: 74250

== ENCOUNTER → 2020-12-02 | Day surgery (SDC) | payer BC ==
[2020-11-28 10:27] LABS: BASOPHILS % 0.4 % (0.0-1.0); EOSINOPHILS % 0.6 % (0.0-6.0); HEMATOCRIT 35.7 % (34.2-44.1); HEMOGLOBIN 12.3 g/dL (12.0-16.0); LYMPHOCYTES # (AUTO) 2.1 (1.0-3.2); LYMPHOCYTES % 29.4 % (18.0-39.1); MEAN CORPUSCULAR HEMOGLOBIN 31.2 pg (28-32); MEAN CORPUSCULAR HGB CONC 34.5 g/dL (31-35); MEAN CORPUSCULAR VOLUME 90.6 fL (81-99); MONOCYTES # (AUTO) 0.4 (0.2-0.8); NEUTROPHILS # (AUTO) 4.4 (2.1-6.9); NEUTROPHILS % 62.9 % (38.7-80.0); PLATELET COUNT 268 x10e3/uL (140-360); RED BLOOD COUNT 3.94 x10e6/uL (3.6-5.1); RED CELL DISTRIBUTION WIDTH 12.5 % (11.7-14.4)
[2020-11-28 10:41] LABS: INR 0.72; PROTHROMBIN TIME 10.7 seconds (11.9-14.5)
[2020-11-28 10:50] LABS: ALBUMIN 3.1 g/dL (3.5-5.0); ALBUMIN/GLOBULIN RATIO 0.8 (0.8-2.0); ANION GAP 12.7 mmol/L (8-16); CALCIUM 8.6 mg/dL (8.4-10.2); CREATININE, SERUM 1.06 mg/dL (0.57-1.11); POTASSIUM 3.7 mmol/L (3.5-5.1)
[~2020-12-02] MED LIST changes: +DEXAMETHASONE SOD PHOS INJ 4 MG/ML VIAL ONE; +FENTANYL CITRATE/PF 100MCG/2 ML INJ ONE; +GLUCAGON FOR INJ 1 MG VIAL ONE; +LIDOCAINE HCL 2% LOCAL INJ 5 ML SDV VIAL INJ ONE; +METOCLOPRAMIDE HCL 10 MG/2ML VIAL ONE; +MIDAZOLAM HCL 2 MG/2 ML VIAL ONE; +POVIDONE IODINE 0.05% 0.05 % ML PO ONE; +PROPOFOL IV EMULSION 10 MG/ML 20 ML VIAL ONE
[2020-12-02 15:57] VITALS: BP 149/80
== END | disposition home or self-care (01) ==
LOC: OR 11:22
PROVIDERS: ATTEND Internal Medicine Gastroenterology
DX: K21.00 Gastro-esophageal reflux disease with esophagitis, without bleeding (principal); D12.3 Benign neoplasm of transverse colon; D12.4 Benign neoplasm of descending colon; D12.5 Benign neoplasm of sigmoid colon; K29.70 Gastritis, unspecified, without bleeding; K29.80 Duodenitis without bleeding; K59.00 Constipation, unspecified; K22.8 Other specified diseases of esophagus; K31.89 Other diseases of stomach and duodenum; K62.89 Other specified diseases of anus and rectum; K64.8 Other hemorrhoids; R63.0 Anorexia; R63.4 Abnormal weight loss; Z01.810 Encounter for preprocedural cardiovascular examination; Z01.812 Encounter for preprocedural laboratory examination; Z79.4 Long term (current) use of insulin
CPT/HCPCS: 36415 ×2; 43239; 45380; 45384; 45385; 80053; 82948; 85025; 85610; 85730; 93005; J1100; J1610; J2001; J2250; J2704; J2765; J3010; 43235; 45378

== ENCOUNTER → 2021-07-03 | Day surgery (SDC) | payer BC ==
[2021-07-02 12:56] LABS: BASOPHILS % 0.3 % (0.0-1.0); EOSINOPHILS % 0.6 % (0.0-6.0); HEMATOCRIT 38.2 % (34.2-44.1); HEMOGLOBIN 12.3 g/dL (12.0-16.0); LYMPHOCYTES # (AUTO) 1.9 (1.0-3.2); MEAN CORPUSCULAR HEMOGLOBIN 30.1 pg (28-32); MEAN CORPUSCULAR HGB CONC 32.2 g/dL (31-35); MEAN CORPUSCULAR VOLUME 93.6 fL (81-99); MONOCYTES # (AUTO) 0.3 (0.2-0.8); NEUTROPHILS # (AUTO) 4.2 (2.1-6.9); NEUTROPHILS % 64.5 % (38.7-80.0); PLATELET COUNT 356 x10e3/uL (140-360); RED BLOOD COUNT 4.08 x10e6/uL (3.6-5.1); RED CELL DISTRIBUTION WIDTH 12.2 % (11.7-14.4)
[2021-07-02 13:06] LABS: INR 0.76; PROTHROMBIN TIME 11.2 seconds (11.9-14.5)
[2021-07-02 13:15] LABS: ALBUMIN 3.2 g/dL (3.5-5.0); ALBUMIN/GLOBULIN RATIO 0.8 (0.8-2.0); ANION GAP 14.7 mmol/L (8-16); CALCIUM 9.4 mg/dL (8.4-10.2); CREATININE, SERUM 0.9 mg/dL (0.57-1.11); POTASSIUM 4.7 mmol/L (3.5-5.1)
[2021-07-02 14:08] LABS: FERRITIN 88.31 ng/mL (4.63-204.00)
[~2021-07-03] MED LIST changes: -DEXAMETHASONE SOD PHOS INJ 4 MG/ML VIAL ONE; +DEXTROSE 5% 250ML 250 ML IV ONE; -FENTANYL CITRATE/PF 100MCG/2 ML INJ ONE; +FLUCONAZOLE 100 MG TAB ONE; -GLUCAGON FOR INJ 1 MG VIAL ONE; -METOCLOPRAMIDE HCL 10 MG/2ML VIAL ONE; +MOTEGRITY2 MG PO; -POVIDONE IODINE 0.05% 0.05 % ML PO ONE
[2021-07-03 10:45] VITALS: BP 149/83
== END | disposition home or self-care (01) ==
LOC: OR 08:29
PROVIDERS: ATTEND Internal Medicine Gastroenterology
DX: K29.50 Unspecified chronic gastritis without bleeding (principal); K22.89 Other specified disease of esophagus; Z86.010 Personal history of colon polyps; D64.9 Anemia, unspecified; K75.4 Autoimmune hepatitis; K90.0 Celiac disease; I10 Essential (primary) hypertension; E11.9 Type 2 diabetes mellitus without complications; E03.9 Hypothyroidism, unspecified; Z88.6 Allergy status to analgesic agent; Z88.1 Allergy status to other antibiotic agents; Z01.810 Encounter for preprocedural cardiovascular examination; Z01.812 Encounter for preprocedural laboratory examination; Z20.822 Contact with and (suspected) exposure to COVID-19; Z79.4 Long term (current) use of insulin; Z79.899 Other long term (current) drug therapy; Z68.33 Body mass index [BMI] 33.0-33.9, adult; Z80.0 Family history of malignant neoplasm of digestive organs
CPT/HCPCS: 36415 ×2; 43239; 80053; 82607; 82728; 82746; 82948; 83540; 84466; 85025; 85610; 85730; 93005; C9113; J2001; J2250; J2704; J7070; U0002; 43235

== ENCOUNTER 2021-07-21 08:15 | Emergency (ER) | payer BC ==
[~2021-07-21] VITALS: Ht 162.6 cm; Wt 107.5 kg
[~2021-07-21 08:15] MED LIST changes: -DEXTROSE 5% 250ML 250 ML IV ONE; -FLUCONAZOLE 100 MG TAB ONE; -LIDOCAINE HCL 2% LOCAL INJ 5 ML SDV VIAL INJ ONE; -MIDAZOLAM HCL 2 MG/2 ML VIAL ONE; -PROPOFOL IV EMULSION 10 MG/ML 20 ML VIAL ONE
[2021-07-21 09:19] LABS: BASOPHILS % 0.6 % (0.0-1.0); EOSINOPHILS # (AUTO) 0.1 (0.0-0.4); EOSINOPHILS % 0.9 % (0.0-6.0); HEMATOCRIT 39.9 % (34.2-44.1); HEMOGLOBIN 13.9 g/dL (12.0-16.0); LYMPHOCYTES # (AUTO) 1.6 (1.0-3.2); MEAN CORPUSCULAR HEMOGLOBIN 30.7 pg (28-32); MEAN CORPUSCULAR HGB CONC 34.8 g/dL (31-35); MEAN CORPUSCULAR VOLUME 88.1 fL (81-99); MONOCYTES # (AUTO) 0.3 (0.2-0.8); MONOCYTES % 4.7 % (4.4-11.3); NEUTROPHILS # (AUTO) 4.6 (2.1-6.9); NEUTROPHILS % 69.2 % (38.7-80.0); PLATELET COUNT 324 x10e3/uL (140-360); RED BLOOD COUNT 4.53 x10e6/uL (3.6-5.1); RED CELL DISTRIBUTION WIDTH 11.6 % (11.7-14.4)
[2021-07-21 09:54] LABS: ALBUMIN 3.3 g/dL (3.5-5.0); ALBUMIN/GLOBULIN RATIO 0.8 (0.8-2.0); ANION GAP 15.8 mmol/L (8-16); CALCIUM 8.9 mg/dL (8.4-10.2); CREATININE, SERUM 1.19 mg/dL (0.57-1.11); POTASSIUM 3.8 mmol/L (3.5-5.1)
== END 2021-07-21 10:30 | disposition home or self-care (01) ==
LOC: ER 08:28
DX: R10.12 Left upper quadrant pain (principal); I10 Essential (primary) hypertension; E11.65 Type 2 diabetes mellitus with hyperglycemia; Z86.39 Personal history of other endocrine, nutritional and metabolic disease; Z87.19 Personal history of other diseases of the digestive system
CPT/HCPCS: 36415; 74018; 80053; 84484; 85025; 93005; 99284

== ENCOUNTER → 2021-07-24 | Outpatient (CLI) | payer BC ==
[~2021-07-24] MED LIST changes: +IOPAMIDOL 370 MG/ML 200 ML INFUS..BTL INJ ONE; +SODIUM CHLORIDE 0.9% 50ML 50 ML ONE
[2021-07-24 17:10] LABS: CREATININE, SERUM 1.01 mg/dL (0.57-1.11)
== END ==
LOC: CT 16:04
PROVIDERS: ATTEND Internal Medicine Gastroenterology
DX: K65.1 Peritoneal abscess (principal)
CPT/HCPCS: 36415; 74160; 82565; 84520; Q9967; 82948

== ENCOUNTER → 2021-08-08 | Outpatient (CLI) | payer BC ==
[~2021-08-08] MED LIST changes: +GADOBENATE DIMEGLUMINE 1 ML IV ONE; -IOPAMIDOL 370 MG/ML 200 ML INFUS..BTL INJ ONE; -SODIUM CHLORIDE 0.9% 50ML 50 ML ONE
== END ==
LOC: MRI 10:06
PROVIDERS: ATTEND Internal Medicine Gastroenterology
DX: N28.89 Other specified disorders of kidney and ureter (principal)
CPT/HCPCS: 74183; A9577

== ENCOUNTER → 2021-08-22 | Outpatient (CLI) | payer BC ==
[~2021-08-22] MED LIST changes: -GADOBENATE DIMEGLUMINE 1 ML IV ONE
== END ==
LOC: US 13:42
PROVIDERS: ATTEND Internal Medicine Gastroenterology
DX: R10.11 Right upper quadrant pain (principal); K50.90 Crohn's disease, unspecified, without complications
CPT/HCPCS: 76700

== ENCOUNTER 2022-04-01 16:37 | Emergency (ER) | payer BC ==
[~2022-04-01] VITALS: Ht 162.6 cm; Wt 107.5 kg
[2022-04-01 17:32] LABS: BASOPHILS # (AUTO) 0.1 (0.0-0.1); BASOPHILS % 0.6 % (0.0-1.0); EOSINOPHILS # (AUTO) 0.1 (0.0-0.4); EOSINOPHILS % 0.5 % (0.0-6.0); HEMATOCRIT 43.5 % (34.2-44.1); HEMOGLOBIN 14.8 g/dL (12.0-16.0); LYMPHOCYTES # (AUTO) 2.5 (1.0-3.2); LYMPHOCYTES % 25.3 % (18.0-39.1); MEAN CORPUSCULAR HEMOGLOBIN 31.2 pg (28-32); MEAN CORPUSCULAR VOLUME 91.8 fL (81-99); MONOCYTES # (AUTO) 0.4 (0.2-0.8); MONOCYTES % 4.5 % (4.4-11.3); NEUTROPHILS # (AUTO) 6.7 (2.1-6.9); NEUTROPHILS % 68.2 % (38.7-80.0); PLATELET COUNT 302 x10e3/uL (140-360); RED BLOOD COUNT 4.74 x10e6/uL (3.6-5.1); RED CELL DISTRIBUTION WIDTH 11.2 % (11.7-14.4)
[2022-04-01 17:56] LABS: ALBUMIN/GLOBULIN RATIO 0.8 (0.8-2.0); ANION GAP 21.7 mmol/L (8-16); CALCIUM 9.2 mg/dL (8.4-10.2); CREATININE, SERUM 1.16 mg/dL (0.57-1.11); POTASSIUM 3.7 mmol/L (3.5-5.1)
[2022-04-01] MEDS ORDERED: DIATRIZOATE MEGL/DIATRIZOA SOD 30 ML BTL PO ONE (17:57)
[2022-04-01] MEDS ORDERED: INSULIN REGULAR, HUMAN 100 UNIT/1 ML SQ ONE ×2 (18:00→20:45)
[2022-04-01 18:02] LABS: CREATINE KINASE MB 2.7 ng/mL (0-5.0)
[2022-04-01 18:32] LABS: CLARITY,URINE CLEAR (CLEAR); COLOR,URINE YELLOW (YELLOW)
[2022-04-01 18:33] LABS: KETONES,URINE TRACE (NEGATIVE); LEUKOCYTE ESTERASE ,URINE NEGATIVE (NEGATIVE); NITRITE,URINE NEGATIVE (NEGATIVE); PROTEIN,URINE DIPSTICK 1+ (NEGATIVE); URINE UROBILINOGEN 0.2 mg/dL (0.2 - 1)
[2022-04-01] MEDS ORDERED: SODIUM CHLORIDE 0.9% 1000ML 1,000 ML IV ONE (18:45)
[2022-04-01 18:46] LABS: BACTERIA,URINE RARE /HPF; EPITHELIAL CELLS,URINE FEW /LPF
[2022-04-01] MEDS ORDERED: IOPAMIDOL 370 MG/ML 100 ML INFUS..BTL INJ ONE (19:42)
[2022-04-01] MEDS ORDERED: ACETAMINOPHEN 325 MG TAB PO ONE (20:30)
[2022-04-01 21:16] VITALS: BP 152/98
[2022-04-01] MEDS ORDERED: DOXYCYCLINE HY100 MG PO (21:27)
== END 2022-04-01 21:20 | disposition home or self-care (01) ==
LOC: ER 16:56
DX: R50.9 Fever, unspecified (principal); U07.1 COVID-19; E11.65 Type 2 diabetes mellitus with hyperglycemia; M79.674 Pain in right toe(s); I10 Essential (primary) hypertension; K76.9 Liver disease, unspecified; Z86.718 Personal history of other venous thrombosis and embolism
CPT/HCPCS: 36415; 71045; 74177; 80053; 81001; 82550; 82553; 82948; 83605; 84484; 85025; 87040; 87086; 87400; 93005; 99284; J1817; J7030; Q9963; Q9967; U0002

== ENCOUNTER 2022-04-03 03:46 | Emergency (ER) | payer BC ==
[~2022-04-03] VITALS: Ht 162.6 cm; Wt 107.5 kg
[~2022-04-03 03:46] MED LIST changes: +DOXYCYCLINE HY100 MG PO
[2022-04-03] MEDS ORDERED: NALOXONE HCL 2MG/2 ML SYRINGE IV ONE (04:00)
[2022-04-03] MEDS ORDERED: LORAZEPAM INJ 2 MG/ML VIAL IV ONE ×2 (04:00→05:15)
[2022-04-03] MEDS ORDERED: NALOXONE HCL 2MG/2 ML SYRINGE ONE (04:06)
[2022-04-03 04:10] LABS: BASOPHILS % 0.4 % (0.0-1.0); EOSINOPHILS % 0.3 % (0.0-6.0); HEMOGLOBIN 14.7 g/dL (12.0-16.0); LYMPHOCYTES # (AUTO) 2.3 (1.0-3.2); LYMPHOCYTES % 25.9 % (18.0-39.1); MEAN CORPUSCULAR HGB CONC 34.2 g/dL (31-35); MEAN CORPUSCULAR VOLUME 90.7 fL (81-99); MONOCYTES # (AUTO) 0.7 (0.2-0.8); MONOCYTES % 8.1 % (4.4-11.3); NEUTROPHILS # (AUTO) 5.8 (2.1-6.9); NEUTROPHILS % 64.5 % (38.7-80.0); PLATELET COUNT 396 x10e3/uL (140-360); RED BLOOD COUNT 4.74 x10e6/uL (3.6-5.1); RED CELL DISTRIBUTION WIDTH 11.1 % (11.7-14.4)
[2022-04-03] MEDS ORDERED: LORAZEPAM INJ 2 MG/ML VIAL ONE (04:13)
[2022-04-03 04:33] LABS: ALBUMIN 3.4 g/dL (3.5-5.0); ALBUMIN/GLOBULIN RATIO 0.7 (0.8-2.0); ANION GAP 19.1 mmol/L (8-16); CALCIUM 8.9 mg/dL (8.4-10.2); CREATININE, SERUM 1.22 mg/dL (0.57-1.11); POTASSIUM 4.1 mmol/L (3.5-5.1)
[2022-04-03 04:40] LABS: CREATINE KINASE MB 3.5 ng/mL (0-5.0)
[2022-04-03] MEDS ORDERED: SODIUM CHLORIDE 0.9% 1000ML 1,000 ML IV ONE (04:45)
[2022-04-03 04:46] LABS: FREE THYROXINE INDEX 2.1713 (1.4-3.8); THYROID STIMULATING HORMONE 3.367 uIU/mL (0.350-4.940)
[2022-04-03 04:46] LABS: AMPHETAMINES SCREEN,URINE NEGATIVE (NEGATIVE); BENZODIAZEPINES SCREEN,URINE NEGATIVE (NEGATIVE); PHENCYCLIDINE SCREEN,URINE NEGATIVE (NEGATIVE)
[2022-04-03] MEDS ORDERED: KETOROLAC TROMETHAMINE 30 MG/ML VIAL IV STA (04:57)
[2022-04-03] MEDS ORDERED: SODIUM CHLORIDE 0.9% 1000ML 1,000 ML ONE (04:58)
[2022-04-03 04:59] LABS: AMPHETAMINES SCREEN,URINE NEGATIVE (NEGATIVE); BENZODIAZEPINES SCREEN,URINE NEGATIVE (NEGATIVE); PHENCYCLIDINE SCREEN,URINE NEGATIVE (NEGATIVE)
[2022-04-03] MEDS ORDERED: INSULIN REGULAR, HUMAN 100 UNIT/1 ML SQ ONE (05:00)
[2022-04-03 05:06] LABS: CLARITY,URINE CLEAR (CLEAR); COLOR,URINE YELLOW (YELLOW); KETONES,URINE NEGATIVE (NEGATIVE); LEUKOCYTE ESTERASE ,URINE NEGATIVE (NEGATIVE); NITRITE,URINE NEGATIVE (NEGATIVE); PROTEIN,URINE DIPSTICK 1+ (NEGATIVE); URINE UROBILINOGEN 0.2 mg/dL (0.2 - 1)
[2022-04-03 05:07] LABS: RBC,URINE 0-5 /HPF (0-5)
[2022-04-03 05:08] LABS: BACTERIA,URINE RARE /HPF; EPITHELIAL CELLS,URINE MODERATE /LPF
[2022-04-03] MEDS ORDERED: ONDANSETRON HCL INJ 2MG/ML 2ML 2 MG/ML VIAL IV STA ×3 (05:12→11:58)
[2022-04-03] MEDS ORDERED: ONDANSETRON HCL INJ 2MG/ML 2ML 2 MG/ML VIAL ONE (05:25)
[2022-04-03 05:27] LABS: SALICYLATE < 5.0 mg/dL (0-30)
[2022-04-03] MEDS ORDERED: IOPAMIDOL 370 MG/ML 100 ML INFUS..BTL INJ ONE ×2 (05:54→12:36)
[2022-04-03] MEDS ORDERED: ACETAMINOPHEN 1000 MG/100 ML IV STA (07:07)
[2022-04-03] MEDS ORDERED: SODIUM CHLORIDE 0.9% 1000ML 1,000 ML IV STA (07:07)
[2022-04-03] MEDS ORDERED: SODIUM CHLORIDE 0.9% 1000ML 1,000 ML IV SCH (07:30)
[2022-04-03] MEDS ORDERED: DEXTROSE 50% SYRINGE 50 ML IV PRN (07:30)
[2022-04-03] MEDS ORDERED: ONDANSETRON HCL INJ 2MG/ML 2ML 2 MG/ML VIAL IV PRN (07:30)
[2022-04-03] MEDS: INSULIN LISPRO 100 UNIT/1 ML 3ML VIAL SQ SCH ×2 (08:24→12:43)
[2022-04-03] MEDS ORDERED: HYDROMORPHONE 1MG/1ML INJ IV STA (09:10)
[2022-04-03] MEDS ORDERED: ASPIRIN 81 MG CHEW TAB PO ONE (11:45)
[2022-04-03] MEDS ORDERED: SODIUM CHLORIDE 0.9% 100 ML ONE (12:36)
== END 2022-04-03 16:15 | disposition home or self-care (01) ==
LOC: ER 03:55 → UNDOADMOB 07:38 → ERHOLD 07:38 → ER 16:15
DX: R51.9 Headache, unspecified (principal); R45.1 Restlessness and agitation; F41.9 Anxiety disorder, unspecified; E11.65 Type 2 diabetes mellitus with hyperglycemia; I10 Essential (primary) hypertension; K76.9 Liver disease, unspecified; R94.31 Abnormal electrocardiogram [ECG] [EKG]
CPT/HCPCS: 36415; 70496; 70498; 70551; 80053; 80307; 80320; 80329 ×2; 81001; 82140; 82550; 82553; 82948; 84436; 84443; 84479; 84484; 85025; 85651; 93005; 99284; J0131; J1170; J1817; J1885; J2060; J2310; J2405; J7030; J7050; Q9967

== ENCOUNTER 2022-07-23 11:01 | Emergency (ER) | payer BC ==
[~2022-07-23] VITALS: Ht 162.6 cm; Wt 107.5 kg
[2022-07-23] MEDS ORDERED: ONDANSETRON HCL INJ 2MG/ML 2ML 2 MG/ML VIAL IV STA (11:14)
[2022-07-23] MEDS ORDERED: Morphine 4mg INJECTION 4 MG/ML INJ IV STA (11:14)
[2022-07-23] MEDS ORDERED: SODIUM CHLORIDE 0.9% 1000ML 1,000 ML IV STA (11:14)
[2022-07-23] MEDS ORDERED: KETOROLAC TROMETHAMINE 30 MG/ML VIAL IV STA (11:14)
[2022-07-23 11:57] LABS: BASOPHILS % 0.4 % (0.0-1.0); EOSINOPHILS % 0.6 % (0.0-6.0); HEMATOCRIT 40.2 % (34.2-44.1); HEMOGLOBIN 12.7 g/dL (12.0-16.0); LYMPHOCYTES # (AUTO) 1.5 (1.0-3.2); LYMPHOCYTES % 29.8 % (18.0-39.1); MEAN CORPUSCULAR HEMOGLOBIN 30.8 pg (28-32); MEAN CORPUSCULAR HGB CONC 31.6 g/dL (31-35); MEAN CORPUSCULAR VOLUME 97.6 fL (81-99); MONOCYTES # (AUTO) 0.3 (0.2-0.8); MONOCYTES % 5.6 % (4.4-11.3); NEUTROPHILS # (AUTO) 3.3 (2.1-6.9); NEUTROPHILS % 63.2 % (38.7-80.0); PLATELET COUNT 297 x10e3/uL (140-360); RED BLOOD COUNT 4.12 x10e6/uL (3.6-5.1); RED CELL DISTRIBUTION WIDTH 11.9 % (11.7-14.4)
[2022-07-23 12:21] LABS: ALBUMIN 3.4 g/dL (3.5-5.0); ALBUMIN/GLOBULIN RATIO 0.9 (0.8-2.0); ANION GAP 14.5 mmol/L (8-16); CREATININE, SERUM 0.84 mg/dL (0.57-1.11); POTASSIUM 4.5 mmol/L (3.5-5.1)
[2022-07-23 12:28] LABS: CLARITY,URINE CLOUDY (CLEAR); COLOR,URINE YELLOW (YELLOW)
[2022-07-23 12:29] LABS: KETONES,URINE NEGATIVE (NEGATIVE); LEUKOCYTE ESTERASE ,URINE SMALL (NEGATIVE); NITRITE,URINE NEGATIVE (NEGATIVE); PROTEIN,URINE DIPSTICK NEGATIVE (NEGATIVE); URINE UROBILINOGEN 0.2 mg/dL (0.2 - 1)
[2022-07-23] MEDS ORDERED: IOPAMIDOL 370 MG/ML 100 ML INFUS..BTL INJ ONE (12:43)
[2022-07-23 12:57] LABS: BACTERIA,URINE MODERATE /HPF; EPITHELIAL CELLS,URINE MODERATE /LPF; TRANSITIONAL EPI CELLS,URINE FEW
[2022-07-23] MEDS ORDERED: FENTANYL CITRATE/PF 100MCG/2 ML INJ IV ONE (13:15)
[2022-07-23] MEDS ORDERED: HYDROCODON-ACE1 EA11 PO (13:45)
[2022-07-23 14:59] VITALS: BP 161/87
== END 2022-07-23 13:53 | disposition home or self-care (01) ==
LOC: ER 11:07
DX: R10.11 Right upper quadrant pain (principal); R14.2 Eructation; I10 Essential (primary) hypertension; E11.65 Type 2 diabetes mellitus with hyperglycemia; K76.9 Liver disease, unspecified; Z86.73 Personal history of transient ischemic attack (TIA), and cerebral infarction without residual deficits
CPT/HCPCS: 36415; 74177; 80053; 81001; 83690; 85025; 87086; 99284; J1885; J2270; J2405; J3010; J7030; Q9967

== ENCOUNTER → 2022-12-11 | Outpatient (CLI) | payer BC ==
[~2022-12-11] MED LIST changes: +HYDROCODON-ACE1 EA11 PO
== END ==
LOC: WCC 08:00
PROVIDERS: ATTEND Internal Medicine Infectious Disease
DX: E11.621 Type 2 diabetes mellitus with foot ulcer (principal); L97.512 Non-pressure chronic ulcer of other part of right foot with fat layer exposed

== ENCOUNTER 2024-04-26 07:42 | Emergency (ER) | payer BC ==
[~2024-04-26] VITALS: Ht 162.6 cm; Wt 107.5 kg
[2024-04-26 07:45] VITALS: TEMP 97.4
[2024-04-26 08:35] VITALS: PULSE 71; RESP 15; O2SAT 100
[2024-04-26 08:46] LABS: BASOPHILS % 0.5 % (0.0-1.0); EOSINOPHILS # (AUTO) 0.1 (0.0-0.4); EOSINOPHILS % 1.4 % (0.0-6.0); HEMATOCRIT 37.1 % (34.2-44.1); HEMOGLOBIN 11.9 g/dL (12.0-16.0); LYMPHOCYTES # (AUTO) 1.7 (1.0-3.2); LYMPHOCYTES % 29.7 % (18.0-39.1); MEAN CORPUSCULAR HEMOGLOBIN 30.2 pg (28-32); MEAN CORPUSCULAR HGB CONC 32.1 g/dL (31-35); MEAN CORPUSCULAR VOLUME 94.2 fL (81-99); MONOCYTES # (AUTO) 0.5 (0.2-0.8); MONOCYTES % 8.1 % (4.4-11.3); NEUTROPHILS # (AUTO) 3.3 (2.1-6.9); NEUTROPHILS % 59.9 % (38.7-80.0); PLATELET COUNT 332 x10e3/uL (140-360); RED BLOOD COUNT 3.94 x10e6/uL (3.6-5.1); RED CELL DISTRIBUTION WIDTH 12.6 % (11.7-14.4); WHITE BLOOD COUNT 5.58 x10e3/uL (4.8-10.8)
[2024-04-26 09:09] LABS: ALBUMIN 3.3 g/dL (3.5-5.0); ALBUMIN/GLOBULIN RATIO 0.9 (0.8-2.0); BILIRUBIN,TOTAL 0.3 mg/dL (0.2-1.2); CALCIUM 9.1 mg/dL (8.4-10.2); CREATININE, SERUM 1.04 mg/dL (0.57-1.11); TOTAL PROTEIN 7.1 g/dL (6.5-8.1)
[2024-04-26 09:17] LABS: TROPONIN I 0.005 ng/mL (0-0.300)
[2024-04-26] MEDS ORDERED: LIDOCAINE1 EAC1 EXT (09:20)
[2024-04-26] MEDS: KETOROLAC TROMETHAMINE 30 MG/ML VIAL IV STA (10:12)
== END 2024-04-26 10:13 | disposition home or self-care (01) ==
LOC: ER 07:47
DX: M25.512 Pain in left shoulder (principal); I10 Essential (primary) hypertension; E11.9 Type 2 diabetes mellitus without complications; K76.9 Liver disease, unspecified; Z86.73 Personal history of transient ischemic attack (TIA), and cerebral infarction without residual deficits
CPT/HCPCS: 36415; 80053; 84484; 85025; 93005; 99284